=== PATIENT | male | born 1945 | race Caucasian/White ===

== ENCOUNTER 2020-09-17 10:31 | Emergency (ER) | payer OTHER, MEDICARE ==
[~2020-09-17] VITALS: Ht 167.6 cm; Wt 86.6 kg
[~2020-09-17 10:31] MED LIST: Prednisone20 MG PO
[2020-09-17 10:56] LABS: BASOPHILS ABSOLUTE AUTO 0.05 K/mm3 (0.00-0.23); BASOPHILS PERCENT AUTO 0 % (0-2); EOSINOPHILS ABSOLUTE AUTO 0.09 K/mm3 (0.00-0.68); EOSINOPHILS PERCENT AUTO 1 % (0-6); Hematocrit 37.8 % (37.0-53.0); Hemoglobin 12.9 g/dL (13.5-17.5); IMMATURE GRAN ABSOLUTE AUTO 0.04 K/mm3 (0.00-0.10); IMMATURE GRAN PERCENT AUTO 0 % (0-1); LYMPHOCYTES PERCENT AUTO 9 % (21-46); MONOCYTES ABSOLUTE AUTO 1.13 K/mm3 (0.16-1.47); MONOCYTES PERCENT AUTO 10 % (4-13); Mean Corpuscular HGB 30.1 pg (26.0-34.0); Mean Corpuscular HGB Conc 34.1 g/dL (31.5-36.5); Mean Corpuscular Volume 88 fL (80-100); Mean Platelet Volume 9.4 fL (9.1-12.4); NEUTROPHILS ABSOLUTE AUTO 9.35 K/mm3 (1.96-9.15); NEUTROPHILS PERCENT AUTO 80 % (41-73); Platelet Count 168 K/mm3 (150-400); RDW Coefficient Variation 12.7 % (11.7-14.2); RDW Standard Deviation 41.3 fL (35.1-46.3); Red Blood Cell Count 4.28 M/mm3 (4.30-5.90); White Blood Cell Count 11.66 K/mm3 (4.00-11.30)
[2020-09-17 11:23] LABS: Alanine Aminotransfer (ALT/SGP 26 U/L (12-78); Albumin, Blood 3.7 g/dL (3.4-5.0); Albumin/Globulin Ratio 1.1 (0.8-1.8); Alk Phos 74 U/L (50-136); Anion Gap 4 mmol/L (6-16); Aspartate Aminotrans (AST/SGOT 17 U/L (12-37); Bilirubin, Total 0.6 mg/dL (0.1-1.0); Blood Urea Nitrogen 18 mg/dL (8-24); Bun/Creatinine Ratio 15.5 (12.0-20.0); CO2, Blood 25 mmol/L (21-32); Calcium, Blood 8.7 mg/dL (8.5-10.1); Chloride, Blood 111 mmol/L (98-108); Creatinine, Blood 1.16 mg/dL (0.60-1.20); Globulin, Blood 3.4 g/dL (2.2-4.0); Glomerular Filtration Rate >60 (60-); Glucose, Blood 121 mg/dL (70-99); Potassium, Blood 4.3 mmol/L (3.5-5.5); Sodium, Blood 140 mmol/L (136-145); Total Protein, Blood 7.1 g/dL (6.4-8.2); Troponin I <0.015 ng/mL (0.000-0.040)
[2020-09-17] MEDS ORDERED: ACETADOTE200 MG/1 M INH (14:23)
[2020-09-17] MEDS ORDERED: ALBU90OI INH ×2 (14:24→14:28)
[2020-09-17] MEDS ORDERED: ALBU2.5V5 NEB (14:24)
[2020-09-17] MEDS ORDERED: NYST237S PO (14:30)
[2020-09-17] MEDS ORDERED: Aspir 8181 MG PO (14:30)
[2020-09-17] MEDS ORDERED: BENMENLOZ PO (14:31)
[2020-09-17] MEDS ORDERED: CARBOXYMETHYLCE15 ML BOTHEYES (14:32)
[2020-09-17] MEDS ORDERED: ERGO400 PO (14:32)
[2020-09-17] MEDS ORDERED: CLOP75 PO (14:33)
[2020-09-17] MEDS ORDERED: B-121000 MC4 PO (14:33)
[2020-09-17] MEDS ORDERED: FINA5 PO (14:34)
[2020-09-17] MEDS ORDERED: FAMO20 PO (14:34)
[2020-09-17] MEDS ORDERED: FURO40 PO (14:35)
[2020-09-17] MEDS ORDERED: GUAI600T33 PO (14:35)
[2020-09-17] MEDS ORDERED: FISH OIL 1,2001 EAC7 PO (14:35)
[2020-09-17] MEDS ORDERED: LOSARTAN POTAS100 M1 PO (14:36)
[2020-09-17] MEDS ORDERED: LEVSOD100 PO (14:36)
[2020-09-17] MEDS ORDERED: LORA10ER PO (14:36)
[2020-09-17] MEDS ORDERED: METO25 PO (14:37)
[2020-09-17] MEDS ORDERED: Hair, Skin & N1 EACH PO (14:37)
[2020-09-17] MEDS ORDERED: TAMS.4ER PO (14:38)
[2020-09-17] MEDS ORDERED: POTA10T PO (14:38)
[2020-09-17] MEDS ORDERED: STIOLTO RESPIMAT4 G1 INH (14:38)
[2020-09-17] MEDS ORDERED: ZOCOR20 MG PO (14:38)
[2020-09-17] MEDS ORDERED: DOXY100 PO (14:43)
== END 2020-09-17 14:55 | disposition home or self-care (01) ==
LOC: ER 10:31
PROVIDERS: Emergency Medicine
DX: J18.9 Pneumonia, unspecified organism (principal); Z79.52 Long term (current) use of systemic steroids; Z79.82 Long term (current) use of aspirin; Z79.899 Other long term (current) drug therapy
CPT/HCPCS: 71045; 80053; 83880; 84484; 85025; 93005; 93010; 96374; 99285-25; J0696

== ENCOUNTER 2020-10-15 20:20 | Emergency (ER) | payer OTHER, MEDICARE ==
[~2020-10-15] VITALS: Ht 177.8 cm; Wt 92.5 kg
[~2020-10-15 20:20] MED LIST changes: +ACETADOTE200 MG/1 M INH; +ALBU2.5V5 NEB; +ALBU90OI INH; +AMOCLA875 PO; +Aspir 8181 MG PO; +B-121000 MC4 PO; +BENMENLOZ PO; +CARBOXYMETHYLCE15 ML BOTHEYES; +CLOP75 PO; +DOXY100 PO; +ERGO400 PO; +FAMO20 PO; +FINA5 PO; +FISH OIL 1,2001 EAC7 PO; +FURO40 PO; +GUAI600T33 PO; +Hair, Skin & N1 EACH PO; +LEVSOD100 PO; +LORA10ER PO; +LOSARTAN POTAS100 M1 PO; +METO25 PO; +NYST237S PO; +POTA10T PO; +STIOLTO RESPIMAT4 G1 INH; +TAMS.4ER PO; +ZOCOR20 MG PO
[2020-10-15 20:47] LABS: BASOPHILS ABSOLUTE AUTO 0.05 K/mm3 (0.00-0.23); BASOPHILS PERCENT AUTO 1 % (0-2); EOSINOPHILS PERCENT AUTO 8 % (0-6); Hematocrit 39.2 % (37.0-53.0); Hemoglobin 13.3 g/dL (13.5-17.5); IMMATURE GRAN ABSOLUTE AUTO 0.02 K/mm3 (0.00-0.10); IMMATURE GRAN PERCENT AUTO 0 % (0-1); LYMPHOCYTES ABSOLUTE AUTO 1.67 K/mm3 (0.84-5.20); LYMPHOCYTES PERCENT AUTO 26 % (21-46); MONOCYTES ABSOLUTE AUTO 0.83 K/mm3 (0.16-1.47); MONOCYTES PERCENT AUTO 13 % (4-13); Mean Corpuscular HGB 30.1 pg (26.0-34.0); Mean Corpuscular HGB Conc 33.9 g/dL (31.5-36.5); Mean Corpuscular Volume 89 fL (80-100); Mean Platelet Volume 9.8 fL (9.1-12.4); NEUTROPHILS ABSOLUTE AUTO 3.45 K/mm3 (1.96-9.15); NEUTROPHILS PERCENT AUTO 53 % (41-73); Platelet Count 187 K/mm3 (150-400); RDW Coefficient Variation 13.3 % (11.7-14.2); RDW Standard Deviation 43.7 fL (35.1-46.3); Red Blood Cell Count 4.42 M/mm3 (4.30-5.90); White Blood Cell Count 6.52 K/mm3 (4.00-11.30)
[2020-10-15 21:02] LABS: Calcium, Blood 9.1 mg/dL (8.5-10.1); Creatinine, Blood 1.45 mg/dL (0.60-1.20); Potassium, Blood 4.4 mmol/L (3.5-5.5)
[2020-12-13] MEDS ORDERED: ALBU2.5V5 INH (10:53)
[2020-12-13] MEDS ORDERED: VITAMIN D310 MC4 PO (10:53)
[2020-12-13] MEDS ORDERED: Aspir 8181 MG PO (10:53)
[2020-12-13] MEDS ORDERED: ALBU90OI INH (10:53)
[2020-12-13] MEDS ORDERED: FLUT.05NI (10:54)
[2020-12-13] MEDS ORDERED: CLOP75 PO (10:54)
[2020-12-13] MEDS ORDERED: Vitamin B-121000 MCG PO (10:54)
[2020-12-13] MEDS ORDERED: FINA5 PO (10:54)
[2020-12-13] MEDS ORDERED: FAMO20 PO (10:54)
[2020-12-13] MEDS ORDERED: METOPROLOL SUCC25 MG PO (10:55)
[2020-12-13] MEDS ORDERED: LOSARTAN POTAS100 M1 PO (10:55)
[2020-12-13] MEDS ORDERED: ALLERCLEAR10 MG PO (10:55)
[2020-12-13] MEDS ORDERED: FURO40 PO (10:55)
[2020-12-13] MEDS ORDERED: LEVSOD100 PO (10:55)
[2020-12-13] MEDS ORDERED: ASMANEX HFA13 G4 INH (10:56)
[2020-12-13] MEDS ORDERED: OMEGA-3 + VITA200 ML PO (10:56)
[2020-12-13] MEDS ORDERED: STRIVERDI RESPIM4 G1 IH (10:56)
[2020-12-13] MEDS ORDERED: K-Dur10 MEQ PO (10:57)
[2020-12-13] MEDS ORDERED: TAMS.4ER PO (10:57)
[2020-12-13] MEDS ORDERED: ZOCOR20 MG PO (10:57)
[2020-12-13] MEDS ORDERED: Flovent Disku100 MCG INH (10:58)
== END 2020-10-15 21:55 | disposition home or self-care (01) ==
LOC: ER 20:20
PROVIDERS: Emergency Medicine
DX: J40 Bronchitis, not specified as acute or chronic (principal); N28.9 Disorder of kidney and ureter, unspecified; J44.9 Chronic obstructive pulmonary disease, unspecified; I10 Essential (primary) hypertension; E78.00 Pure hypercholesterolemia, unspecified; Z88.8 Allergy status to other drugs, medicaments and biological substances; Z91.041 Radiographic dye allergy status; Z79.82 Long term (current) use of aspirin; Z79.899 Other long term (current) drug therapy; Z79.02 Long term (current) use of antithrombotics/antiplatelets
CPT/HCPCS: 36415; 71046; 80048; 85025; 93005; 93010; 96374; 99284-25; J2930

== ENCOUNTER 2020-12-22 11:46 | Day surgery (SDC) | payer OTHER ==
[~2020-12-22] VITALS: Ht 177.8 cm; Wt 94.8 kg
[~2020-12-22 11:46] MED LIST changes: +ALBU2.5V5 INH; +ALLERCLEAR10 MG PO; +ASMANEX HFA13 G4 INH; +FLUT.05NI; +Flovent Disku100 MCG INH; +K-Dur10 MEQ PO; +METOPROLOL SUCC25 MG PO; +OMEGA-3 + VITA200 ML PO; +STRIVERDI RESPIM4 G1 IH; +VITAMIN D310 MC4 PO; +Vitamin B-121000 MCG PO
== END 2020-12-22 14:21 | disposition home or self-care (01) ==
LOC: ORSCSDS 11:46
PROVIDERS: Ophthalmology
PROC: 080NXZZ Alteration of Right Upper Eyelid, External Approach (ICD-10-PCS; principal; 2020-12-22 13:00)
PROC: 080PXZZ Alteration of Left Upper Eyelid, External Approach (ICD-10-PCS; principal; 2020-12-22 13:00)
DX: H02.831 Dermatochalasis of right upper eyelid (principal); H02.834 Dermatochalasis of left upper eyelid; I48.0 Paroxysmal atrial fibrillation; Z79.01 Long term (current) use of anticoagulants; J44.9 Chronic obstructive pulmonary disease, unspecified; G47.33 Obstructive sleep apnea (adult) (pediatric); Z79.899 Other long term (current) drug therapy; Z79.82 Long term (current) use of aspirin
CPT/HCPCS: A9270; J0171; J2250; J2704; J3010

== ENCOUNTER 2021-07-01 05:40 | Day surgery (SDC) | payer OTHER, MEDICARE ==
[~2021-07-01] VITALS: Ht 177.8 cm; Wt 93.0 kg
[~2021-07-01 05:40] MED LIST changes: +B-121000 MC7 PO; +FISH OIL-OMEGA 3 PO; +PANT40 PO; +PRED20 PO
--- NOTE | 2021-07-01 10:51 | NUR ---
TR BAND REMOVED, DRESSING PLACED TO R ACCESS SITE, R SPLINT PLACED, IV DC'D INTACT, PT DRESSED, DR NEGRON BY AND DISCUSSED PLAN OF CARE, PT WAITING FOR RIDE AT THIS TIME
--- NOTE | 2021-07-01 11:16 | NUR ---
PT DC'D BY MIKE, FAMILY DRIVING PT HOME
== END 2021-07-01 10:00 | disposition home or self-care (01) ==
LOC: MHTC 05:40
DX: I25.118 Atherosclerotic heart disease of native coronary artery with other forms of angina pectoris (principal); I11.0 Hypertensive heart disease with heart failure; I50.42 Chronic combined systolic (congestive) and diastolic (congestive) heart failure; J44.9 Chronic obstructive pulmonary disease, unspecified; I35.0 Nonrheumatic aortic (valve) stenosis; Z95.5 Presence of coronary angioplasty implant and graft; Z87.891 Personal history of nicotine dependence; Z79.02 Long term (current) use of antithrombotics/antiplatelets; Z88.8 Allergy status to other drugs, medicaments and biological substances
CPT/HCPCS: 76937; 93454; 99152; 99153; C1769; C1887; C1894; J1200; J1644; J1720; J2250; J3010; J7030; J7050; Q9967

== ENCOUNTER 2021-07-21 12:11 | Emergency (ER) | payer OTHER ==
[~2021-07-21] VITALS: Ht 177.8 cm; Wt 95.2 kg
[2021-07-21 12:38] LABS: BASOPHILS ABSOLUTE AUTO 0.04 K/mm3 (0.00-0.23); BASOPHILS PERCENT AUTO 1 % (0-2); EOSINOPHILS ABSOLUTE AUTO 0.17 K/mm3 (0.00-0.68); EOSINOPHILS PERCENT AUTO 2 % (0-6); Hematocrit 40.1 % (37.0-53.0); Hemoglobin 13.6 g/dL (13.5-17.5); IMMATURE GRAN ABSOLUTE AUTO 0.03 K/mm3 (0.00-0.10); IMMATURE GRAN PERCENT AUTO 0 % (0-1); LYMPHOCYTES ABSOLUTE AUTO 1.68 K/mm3 (0.84-5.20); LYMPHOCYTES PERCENT AUTO 24 % (21-46); MONOCYTES ABSOLUTE AUTO 0.74 K/mm3 (0.16-1.47); MONOCYTES PERCENT AUTO 11 % (4-13); Mean Corpuscular HGB 30.2 pg (26.0-34.0); Mean Corpuscular HGB Conc 33.9 g/dL (31.5-36.5); Mean Corpuscular Volume 89 fL (80-100); Mean Platelet Volume 9.5 fL (9.1-12.4); NEUTROPHILS PERCENT AUTO 62 % (41-73); Platelet Count 180 K/mm3 (150-400); RDW Coefficient Variation 12.9 % (11.7-14.2); RDW Standard Deviation 42.1 fL (35.1-46.3); Red Blood Cell Count 4.51 M/mm3 (4.30-5.90); White Blood Cell Count 7.06 K/mm3 (4.00-11.30)
[2021-07-21 12:57] LABS: Albumin, Blood 4.1 g/dL (3.4-5.0); Albumin/Globulin Ratio 1.2 (0.8-1.8); Bilirubin, Total 0.7 mg/dL (0.1-1.0); Bun/Creatinine Ratio 18.6 (12.0-20.0); Calcium, Blood 9.1 mg/dL (8.5-10.1); Creatinine, Blood 1.29 mg/dL (0.60-1.20); Globulin, Blood 3.5 g/dL (2.2-4.0); Potassium, Blood 3.7 mmol/L (3.5-5.5); Total Protein, Blood 7.6 g/dL (6.4-8.2)
== END 2021-07-21 15:55 | disposition home or self-care (01) ==
LOC: ER 12:11
PROVIDERS: Emergency Medicine
DX: R07.89 Other chest pain (principal); Z88.8 Allergy status to other drugs, medicaments and biological substances; Z79.899 Other long term (current) drug therapy; Z79.82 Long term (current) use of aspirin; J44.9 Chronic obstructive pulmonary disease, unspecified; I10 Essential (primary) hypertension; E78.00 Pure hypercholesterolemia, unspecified
CPT/HCPCS: 71045; 80053; 83880; 84484; 85025; 93005; 93010; 99285-25

== ENCOUNTER 2021-10-29 18:11 | Emergency (ER) | payer OTHER ==
[~2021-10-29] VITALS: Ht 177.8 cm; Wt 96.2 kg
[2021-10-29 19:52] LABS: BASOPHILS ABSOLUTE AUTO 0.04 K/mm3 (0.00-0.23); BASOPHILS PERCENT AUTO 1 % (0-2); EOSINOPHILS ABSOLUTE AUTO 0.15 K/mm3 (0.00-0.68); EOSINOPHILS PERCENT AUTO 2 % (0-6); Hemoglobin 13.4 g/dL (13.5-17.5); IMMATURE GRAN ABSOLUTE AUTO 0.02 K/mm3 (0.00-0.10); IMMATURE GRAN PERCENT AUTO 0 % (0-1); LYMPHOCYTES ABSOLUTE AUTO 1.37 K/mm3 (0.84-5.20); LYMPHOCYTES PERCENT AUTO 18 % (21-46); MONOCYTES ABSOLUTE AUTO 0.54 K/mm3 (0.16-1.47); MONOCYTES PERCENT AUTO 7 % (4-13); Mean Corpuscular HGB 30.2 pg (26.0-34.0); Mean Corpuscular HGB Conc 33.5 g/dL (31.5-36.5); Mean Corpuscular Volume 90 fL (80-100); Mean Platelet Volume 9.9 fL (9.1-12.4); NEUTROPHILS ABSOLUTE AUTO 5.49 K/mm3 (1.96-9.15); NEUTROPHILS PERCENT AUTO 72 % (41-73); Platelet Count 186 K/mm3 (150-400); RDW Coefficient Variation 13.6 % (11.7-14.2); RDW Standard Deviation 45.3 fL (35.1-46.3); Red Blood Cell Count 4.43 M/mm3 (4.30-5.90); White Blood Cell Count 7.61 K/mm3 (4.00-11.30)
[2021-10-29 20:11] LABS: Albumin/Globulin Ratio 1.2 (0.8-1.8); Bilirubin, Total 0.4 mg/dL (0.1-1.0); Bun/Creatinine Ratio 13.4 (12.0-20.0); Calcium, Blood 8.7 mg/dL (8.5-10.1); Creatinine, Blood 1.34 mg/dL (0.60-1.20); Globulin, Blood 3.4 g/dL (2.2-4.0); Potassium, Blood 4.1 mmol/L (3.5-5.5); Total Protein, Blood 7.4 g/dL (6.4-8.2)
== END 2021-10-29 22:41 | disposition home or self-care (01) ==
LOC: ER 18:11
PROVIDERS: Physician Assistant
DX: K92.0 Hematemesis (principal); J44.9 Chronic obstructive pulmonary disease, unspecified; Z85.118 Personal history of other malignant neoplasm of bronchus and lung; Z79.899 Other long term (current) drug therapy; Z79.82 Long term (current) use of aspirin; Z87.891 Personal history of nicotine dependence
CPT/HCPCS: 36415; 71046; 80053; 83880; 84484; 85025; 93005; 93010; 99283-25

== ENCOUNTER 2022-02-24 05:25 | Inpatient (IN) | payer OTHER ==
[~2022-02-24] VITALS: Ht 175.3 cm; Wt 100.5 kg
[~2022-02-24 05:25] MED LIST changes: +FURO20 PO
[2022-02-24 05:44] LABS: BASOPHILS ABSOLUTE AUTO 0.03 K/mm3 (0.00-0.23); BASOPHILS PERCENT AUTO 0 % (0-2); EOSINOPHILS ABSOLUTE AUTO 0.08 K/mm3 (0.00-0.68); EOSINOPHILS PERCENT AUTO 1 % (0-6); Hematocrit 42.5 % (37.0-53.0); IMMATURE GRAN ABSOLUTE AUTO 0.04 K/mm3 (0.00-0.10); IMMATURE GRAN PERCENT AUTO 0 % (0-1); LYMPHOCYTES ABSOLUTE AUTO 2.57 K/mm3 (0.84-5.20); LYMPHOCYTES PERCENT AUTO 22 % (21-46); MONOCYTES ABSOLUTE AUTO 0.64 K/mm3 (0.16-1.47); MONOCYTES PERCENT AUTO 6 % (4-13); Mean Corpuscular HGB 30.4 pg (26.0-34.0); Mean Corpuscular HGB Conc 32.9 g/dL (31.5-36.5); Mean Corpuscular Volume 92 fL (80-100); Mean Platelet Volume 9.6 fL (9.1-12.4); NEUTROPHILS ABSOLUTE AUTO 8.27 K/mm3 (1.96-9.15); NEUTROPHILS PERCENT AUTO 71 % (41-73); Platelet Count 180 K/mm3 (150-400); RDW Coefficient Variation 13.7 % (11.7-14.2); RDW Standard Deviation 46.5 fL (35.1-46.3); Red Blood Cell Count 4.61 M/mm3 (4.30-5.90); White Blood Cell Count 11.63 K/mm3 (4.00-11.30)
[2022-02-24 06:06] LABS: Albumin, Blood 3.8 g/dL (3.4-5.0); Albumin/Globulin Ratio 1.1 (0.8-1.8); Bilirubin, Total 0.4 mg/dL (0.1-1.0); Calcium, Blood 8.4 mg/dL (8.5-10.1); Creatinine, Blood 1.82 mg/dL (0.60-1.20); Globulin, Blood 3.5 g/dL (2.2-4.0); Magnesium, Blood 2.5 mg/dL (1.6-2.4); Potassium, Blood 4.4 mmol/L (3.5-5.5); Total Protein, Blood 7.3 g/dL (6.4-8.2)
[2022-02-24 06:31] LABS: PCO2 Arterial 34.3 mmHg (35-45); pH Blood Arterial 7.42 (7.35-7.45)
[2022-02-24 07:08] LABS: Influenza A, PCR NEGATIVE (NEGATIVE); Influenza B, PCR NEGATIVE (NEGATIVE); Resp Syncytial Virus, PCR NEGATIVE (NEGATIVE); SARS-Cov-2 (COVID-19) PCR, MMC NEGATIVE (NEGATIVE)
[2022-02-24] MEDS ORDERED: CYCL10 PO (10:23)
--- NOTE | 2022-02-24 18:13 | NUR ---
SHIFT SUMMARY; ADMIT FROM ED DURING SHIFT. A/A/OX4. MOVES SELF FROM GURNEY TO BED WITHOUT DIFFICULTY. 02 10L VIA HIGH FLOW CANNULA. SPEAKING FULL SENTENCES, NO RESPIRATORY DISTRESS. USES URINAL DURING SHIFT WITHOUT DIFFICULTY AND AMBULATES TO RESTROOM WITH STANDBY ASSIT. 02 DECREASED TO 5L BY RT. PLEASANT AND COOPERATIVE WITH CARE. VSS, WILL CONTINUE TO MONITOR AND TREAT UNTIL CHANGE OF SHIFT.
[2022-02-25 04:34] LABS: BASOPHILS ABSOLUTE AUTO 0.04 K/mm3 (0.00-0.23); BASOPHILS PERCENT AUTO 0 % (0-2); EOSINOPHILS PERCENT AUTO 0 % (0-6); Hematocrit 37.1 % (37.0-53.0); Hemoglobin 12.7 g/dL (13.5-17.5); IMMATURE GRAN ABSOLUTE AUTO 0.18 K/mm3 (0.00-0.10); IMMATURE GRAN PERCENT AUTO 1 % (0-1); LYMPHOCYTES ABSOLUTE AUTO 1.47 K/mm3 (0.84-5.20); LYMPHOCYTES PERCENT AUTO 7 % (21-46); MONOCYTES ABSOLUTE AUTO 1.85 K/mm3 (0.16-1.47); MONOCYTES PERCENT AUTO 9 % (4-13); Mean Corpuscular HGB 30.9 pg (26.0-34.0); Mean Corpuscular HGB Conc 34.2 g/dL (31.5-36.5); Mean Corpuscular Volume 90 fL (80-100); Mean Platelet Volume 10.4 fL (9.1-12.4); NEUTROPHILS ABSOLUTE AUTO 17.22 K/mm3 (1.96-9.15); NEUTROPHILS PERCENT AUTO 83 % (41-73); Platelet Count 175 K/mm3 (150-400); RDW Coefficient Variation 13.6 % (11.7-14.2); RDW Standard Deviation 45.5 fL (35.1-46.3); Red Blood Cell Count 4.11 M/mm3 (4.30-5.90); White Blood Cell Count 20.76 K/mm3 (4.00-11.30)
[2022-02-25 04:39] LABS: PCO2 Arterial 37.1 mmHg (35-45); PO2 Arterial 106 mmHg (80-100); pH Blood Arterial 7.41 (7.35-7.45)
[2022-02-25 05:00] LABS: Albumin, Blood 3.4 g/dL (3.4-5.0); Albumin/Globulin Ratio 0.9 (0.8-1.8); Bilirubin, Total 0.6 mg/dL (0.1-1.0); Bun/Creatinine Ratio 24.1 (12.0-20.0); Calcium, Blood 8.6 mg/dL (8.5-10.1); Creatinine, Blood 1.33 mg/dL (0.60-1.20); Globulin, Blood 3.7 g/dL (2.2-4.0); Potassium, Blood 4.5 mmol/L (3.5-5.5); Total Protein, Blood 7.1 g/dL (6.4-8.2)
--- NOTE | 2022-02-25 06:33 | NUR ---
SHIFT SUMMARY PT IS ALERT AND ORIENTED X4. HE DENIES CHEST PAIN/PRESSURE. BP HAS BEEN SOFT AT TIMES. HR IN THE 80'S. THIS AM STARTING AT APPROX 05:30 HE HAD HAD SR ABARRANCIES. CHARGE NURSE TALKED TO HOSPITALIST THIS AM TO GET A MAG DRAW WITH LABS. HE DENIES CHEST PAIN/PRESSURE OR PALPATATIONS. HE REPORTS "FEELING BETTER." HE IS CURRENTLY ON 2-3 L NC WITH SATS ABOVE 90%. HE HAS BEEN UP TO THE BATHROOM AND HAS BEEN USING URINAL AT TIMES. CALL LIGHT IS WITHIN REACH.
--- NOTE | 2022-02-25 18:03 | NUR ---
NO ACUTE EVENTS T/O SHIFT. PT HAS HAD SMALL RUNS OF NONSUSTAINED VTACH, WHICH DR ZAPATA MENTIONS IN HIS NOTE, MAY BE CHRONIC FOR HIM. PT IS ASYMPTOMATIC WITH THIS RHYTHM. 02 DEMANDS HAVE DECREASED FROM 5L TO 2L. PT IS ABLE TO AMBULATE IN ROOM INDEPENDENTLY. PT USES CALL LIGHT FOR NEEDS, CALL LIGHT IN REACH, WILL CONTINUE TO MONITOR AND GIVE REPORT TO NOC ZACKARY RN.
[2022-02-26 03:41] LABS: Base Excess Venous 2.5 mmol/L; Bicarbonate Venous 25.4 mmol/L (24.0-30.0); PCO2 Venous 45.2 mmHg (38-42); pH Blood Venous 7.39 (7.34-7.37)
[2022-02-26 04:16] LABS: BASOPHILS ABSOLUTE AUTO 0.04 K/mm3 (0.00-0.23); BASOPHILS PERCENT AUTO 0 % (0-2); EOSINOPHILS ABSOLUTE AUTO 0.08 K/mm3 (0.00-0.68); EOSINOPHILS PERCENT AUTO 1 % (0-6); Hematocrit 36.7 % (37.0-53.0); IMMATURE GRAN ABSOLUTE AUTO 0.07 K/mm3 (0.00-0.10); IMMATURE GRAN PERCENT AUTO 1 % (0-1); LYMPHOCYTES ABSOLUTE AUTO 1.76 K/mm3 (0.84-5.20); LYMPHOCYTES PERCENT AUTO 13 % (21-46); MONOCYTES ABSOLUTE AUTO 1.13 K/mm3 (0.16-1.47); MONOCYTES PERCENT AUTO 8 % (4-13); Mean Corpuscular HGB 30.2 pg (26.0-34.0); Mean Corpuscular HGB Conc 32.7 g/dL (31.5-36.5); Mean Corpuscular Volume 92 fL (80-100); Mean Platelet Volume 10.4 fL (9.1-12.4); NEUTROPHILS ABSOLUTE AUTO 10.94 K/mm3 (1.96-9.15); NEUTROPHILS PERCENT AUTO 78 % (41-73); Platelet Count 170 K/mm3 (150-400); RDW Standard Deviation 47.6 fL (35.1-46.3); Red Blood Cell Count 3.97 M/mm3 (4.30-5.90); White Blood Cell Count 14.02 K/mm3 (4.00-11.30)
[2022-02-26 04:49] LABS: Calcium, Blood 8.3 mg/dL (8.5-10.1); Creatinine, Blood 1.1 mg/dL (0.60-1.20); Potassium, Blood 4.5 mmol/L (3.5-5.5)
--- NOTE | 2022-02-26 05:56 | NUR ---
SHIFT SUMMARY PT ALERT AND ORIENTED X4. THERE HAVE BEEN NO ACUTE CHANGES T/O THE NIGHT. PT DENIES CHEST PAIN OR PRESSURE. HE REPORTS FEELING SOB ON EXERTION. VITALS ARE STABLE AND IS FROM 1-2L NC WITH SATS ABOVE 90%. PT HAS BEEN ABLE TO AMBULATE TO THE BATHROOM AND ALSO USES URINAL. LAST NIGHT HE ATTEMPTED TO SWITCH FROM NC TO CPAP, SAT UP IN BED AND BECAME DYSPNIC WHICH MADE HIM ANXIOUS AND STATED THAT HE WOULD NOT BE SWITCHING TO MASK FOR THE NIGHT. CALL LIGHT IS WITHIN REACH.
--- NOTE | 2022-02-26 18:18 | NUR ---
SHIFT SUMMARY PT WITH INTERMITTENT RUNS OF TRIGEMINY PVCS ON TELE. HAS BEEN SINUS IN THE 70S AND 80S THROUGHOUT THE DAY. PT HAD SOME ANXIETY AT THE START OF THE SHIFT BUT THIS HAS SINCE IMPROVED AND PT HAS BEEN RESTING. NO COMPLAINTS OF CHEST PAIN. SATTING >92% ON 2L THROUGHOUT THE SHIFT. USING URINAL INDEPENDENTLY. ALERT AND ORIENTED. PLEASANT. NO ACUTE DISTRESS THIS SHIFT.
--- NOTE | 2022-02-27 06:54 | NUR ---
PT AOX4, DENIES CP T/O SHIFT. OCCASIONAL RUNS OF TRIGEMINY. TACHYPNEIC AT REST, DYPNEIC W/EXERTION. LS DIM WITH OCCASIONAL EXPIRATORY WHEEZING WITH EXERTION. PT HAS THICK BROWN MUCUS WITH PRODUCTIVE COUGH. LACEY RT CALLED TO BEDSIDE DURING NIGHT FOR BREATHING TX D/T SOB W/EXERTION. PT STATED SOME IMPROVEMENT.
[2022-02-27 09:17] LABS: Hematocrit 38.4 % (37.0-53.0); Hemoglobin 12.6 g/dL (13.5-17.5); Mean Corpuscular HGB 30.5 pg (26.0-34.0); Mean Corpuscular HGB Conc 32.8 g/dL (31.5-36.5); Mean Corpuscular Volume 93 fL (80-100); Mean Platelet Volume 10.2 fL (9.1-12.4); Platelet Count 191 K/mm3 (150-400); RDW Coefficient Variation 13.6 % (11.7-14.2); RDW Standard Deviation 46.6 fL (35.1-46.3); Red Blood Cell Count 4.13 M/mm3 (4.30-5.90); White Blood Cell Count 11.38 K/mm3 (4.00-11.30)
[2022-02-27 09:32] LABS: Albumin, Blood 3.4 g/dL (3.4-5.0); Anion Gap 4 mmol/L (6-16); Blood Urea Nitrogen 15 mg/dL (8-24); CO2, Blood 29 mmol/L (21-32); Calcium, Blood 8.5 mg/dL (8.5-10.1); Chloride, Blood 108 mmol/L (98-108); Glomerular Filtration Rate 78 (60-); Glucose, Blood 131 mg/dL (70-99); Magnesium, Blood 2.6 mg/dL (1.6-2.4); Phosphorus, Blood 1.9 mg/dL (2.5-4.9); Potassium, Blood 4.1 mmol/L (3.5-5.5); Sodium, Blood 141 mmol/L (136-145)
--- NOTE | 2022-02-27 09:55 | NUR ---
ASSUMPTION OF CARE: PATIENT HAS BEEN ON 2L THROUGH THE NIGHT AND WAS CURRENLTY RECIEVING A BREATHING TREATMENT ON ASSUMPTION OF CARE AROUND 0715. PATIENT DENIES CHEST PAIN, PRESSURE, OR SOB AT REST. HAS BEEN PRODUCING LARGE AMOUNTS OF BROWN SPUTUM, WHICH HAS NOW BEEN SENT TO LAB FOR Cx. JUAN LUISVAHID TAMI BEEN USING THE URINAL AT THE BEDSIDE. PATIENT IS A/0 X 4, PLEASANT AND COOPERATIVE WITH CARE. IV'S FLUSHED, TELEMETRY IN PLACE. NO INFUSIONS RUNNING CURRENLTY. PATIENT HAS NO QUESTIONS OR CONCERNS FOR THIS DOCK MANAGER AT THIS TIME WILL CONTINUE TO MONITOR UNTIL SHIFT CHANGE.
--- NOTE | 2022-02-27 16:35 | NUR ---
END OF SHIFT / ASSUMPTION OF CARE: PATIENT HAS ASSESSMENT CHANGE FROM ASSUMPTION OF CARE. ENDORESES SOME VERY MILD DECREASE TO DYSPNEA ON EXERTION. IS NOW INFUSING POTASSIUM PHOSPHATE STILL NEEDS ~2.5 HOURS TO INFUSE COMPLETELY. PATIENT TOLERATING WELL NO SIGNS OF INFILTRATION. PATIENT HAS BEEN PLEASANT STILL DENIES CHEST PAIN/PRESSURE OR SOB AT REST. PATIENT IS AFEBRILE. NO CONCERNS FROM THIS BUSINESS INTELLIGENCE DEVELOPER AT THIS TIME.
--- NOTE | 2022-02-27 22:15 | NUR ---
Pt ambulating Pt up and ambulating in crocker per request, steady on his feet, some dyspnea but states he is feeling much better and would like to walk. Holds onto side rail in crocker per this RN request.
[2022-02-28 05:12] LABS: Albumin, Blood 3.3 g/dL (3.4-5.0); Anion Gap 9 mmol/L (6-16); Blood Urea Nitrogen 18 mg/dL (8-24); Bun/Creatinine Ratio 19.4 (12.0-20.0); CO2, Blood 24 mmol/L (21-32); Chloride, Blood 108 mmol/L (98-108); Creatinine, Blood 0.93 mg/dL (0.60-1.20); Glomerular Filtration Rate 85 (60-); Glucose, Blood 142 mg/dL (70-99); Phosphorus, Blood 3.3 mg/dL (2.5-4.9); Potassium, Blood 4.8 mmol/L (3.5-5.5); Sodium, Blood 141 mmol/L (136-145)
--- NOTE | 2022-02-28 06:45 | NUR ---
SHIFT SUMMARY PT SEEMS LETHARGIC T/O SHIFT, RESPONDS WITH YES AND SOME GARBLED RESPONSES, SEEMED TO IMPROVE TOWARDS EARLY AM. PUPILS EQUAL AND REACTIVE, R SIDE GAZE, PT APPEARS TO NEGLECT L SIDE, L SIDE FACIAL PARALYSIS VISIBLE WITH SOME IMPROVEMENT FROM START OF SHIFT (CAN LIFT BROWS FOR THIS RN, AT START COULD NOT LIFT L BROW), REFLEXES PRESENT IN BLE. DIFFICULT TO ASSESS SENSATION D/T PT NEGLECT TO L SIDE AND UNABLE TO VERBALIZE A CONFIRMATION TO THAT SIDE. VERBALIZES WHEN THIS RN TOUCHES R ARM OR LEG. PT HAS COPIOUS SPUTUM AND DROOL, APPEARS TO HAVE DIFFICULTY SWALLOWING SECRETIONS. FREQUENT SUCTIONING AND ORAL CARE PERFORMED. PT IS TACHYPNEIC AT TIMES WITH SHALLOW BREATHING. SATS 93-95% ON RA THIS AM WHEN PULLED OFF CANNULA AND REQUESTED TO TRY IT OFF. PLACED BACK ON WHEN SOME APNEA IS NOTED WITH DESATS TO 90-92%. LS OTHERWISE CLEAR AND DIM. PT TURNED FREQUENTLY AND CHANGED D/T INCONTINENT OF URINE, NO STOOL NOTED THIS SHIFT. PT DENIES ABD TENDERNESS. (SOME DARK BROWN EXPECTORATE NOTED AND REPORTED TO DR MALHOTRA). (PHOTO IN CHART) PT'S SEIZURE ACTIVITY HAS APPEARED TO LESSEN IN FREQUENCY T/O SHIFT. PT BECOMES TREMULOUS AND APPEARS TO HAVE SOME SEIZURE ACTIVITY WITH TURNS IN BED FOR REPOSITIONING AND CLEANING.
--- NOTE | 2022-02-28 07:24 | NUR ---
SHIFT SUMMARY PT AOX4, BREATHING TACHYPNEIC, DYSPNEA WITH EXERTION, SATS 95-97% ON RA, DESATS IN EVENING WHEN LAYING DOWN FOR BED AND WHILE ASLEEP. PLACED ON HOME CPAP. RT CALLED TO ADD O2 TO HOME CPAP D/T DESAT TO 89-90% WHILE USING IT WHILE ASLEEP. OTHERWISE, PT STATES HE IS FEELING MUCH BETTER, TOLERATED WALKING IN BUNN AND RECOVERED FROM DYSPNEA WELL.
--- NOTE | 2022-02-28 09:21 | NUR ---
ASSUMPTION OF CARE THIS RN ASSUMED CARE OF PATIENT AT 0700. REPORT TAKEN FROM [facility]. NO ACUTE EVENTS REPORTED OVERNIGHT. VITALS STABLE. PATIENT ON ROOM AIR AND WALKING TO BATHROOM AT START OF SHIFT. NO SIGNS OF DISTRESS WITH WALKING; INDEPENDENT WITH ADLS/TRANSFERRING. PATIENT APPEARS TO BE RESTING IN BED WITH CPAP ON. BED IN LOWEST POSITION AND CALL LIGHT WITHIN REACH.
[2022-02-28] MEDS ORDERED: BUDESONIDE0.5 MG/2 M INH (11:43)
[2022-02-28] MEDS ORDERED: AZIT500 PO (11:45)
[2022-02-28] MEDS ORDERED: CEFD300 PO (11:46)
[2022-02-28] MEDS ORDERED: VISBIOME 112.51 EACH PO (11:46)
[2022-02-28] MEDS ORDERED: Prednisone10 MG PO (11:48)
--- NOTE | 2022-02-28 13:00 | NUR ---
DISCHARGE NOTE PATIENT WITH STABLE VITALS. ON RA WITH O2 SATS >92%. DENIES SOB. PATIENT INDEPENDENT WITH GETTING DRESSED AND PACKING THINGS FOR DISCHARGE. SIGNIFICANT OTHER AT BEDSIDE FOR DISCHARGE TEACHING. ZIO PATCH PLACED ON LEFT CHEST WALL. TELE AND IV DC'D, WNL. PATIENT GIVEN PRINTED INSTRUCTIONS OF FOLLOW UP APPOINTMENT AND DISCHARGE ORDERS. NEW MEDICATION LIST UPDATED AND PROVIDED FOR PATIENT. EDUCATION GIVEN ON NEW MEDICATIONS WITH SIGNIFICANT OTHER PRESENT FOR TEACHING. PATIENT IS HARD OF HEARING BUT VERBALIZED UNDERSTANDING INFORMATION. SIGNIFICANT OTHER AT BEDSIDE AND VERBALIZED BEING "IN CHARGE" OF MEDICATIONS. PATIENT INSTRUCTED ON ZIO PATCH BY [facility] TECH AND RE-STATED INFORMATION TO THIS RN. PATIENT UNDERSTANDS TO TALK TO PCP ABOUT CARDIOLOGY CONSULT AT FOLLOW UP APPOINTMENT. PATIENT TAKEN OUT OF HOSPITAL VIA WHEELCHAIR; NO SIGNS OF DISTRESS, RESPIRATORY OR OTHER. PATIENT AND SIGNIFICANT OTHER VERBALIZED UNDERSTANDING INSTRUCTIONS AND GIVEN PRINTED COPIES OF INFORMATION PROVIDED. CASE MANAGEMENT HELPED WITH FORM [facility] SO THAT THE [facility]IENT CAN GET OXYGEN FOR HIS CPAP AT HOME.
== END 2022-02-28 12:58 | disposition home or self-care (01) | DRG 871 ==
LOC: ER 05:25 → PCU 08:13
PROVIDERS: Emergency Medicine; Internal Medicine; Student in an Organized Health Care Education/Training Program; ADMIT Internal Medicine
PROC: 5A09357 Assistance with Respiratory Ventilation, Less than 24 Consecutive Hours, Continuous Positive Airway Pressure (ICD-10-PCS; principal; 2022-02-24)
PROC: 3E03329 Introduction of Other Anti-infective into Peripheral Vein, Percutaneous Approach (ICD-10-PCS; 2022-02-24)
DX: A41.9 Sepsis, unspecified organism (principal); J18.9 Pneumonia, unspecified organism; J96.21 Acute and chronic respiratory failure with hypoxia; J44.1 Chronic obstructive pulmonary disease with (acute) exacerbation; J44.0 Chronic obstructive pulmonary disease with (acute) lower respiratory infection; N17.9 Acute kidney failure, unspecified; R65.20 Severe sepsis without septic shock; Z85.118 Personal history of other malignant neoplasm of bronchus and lung; I49.9 Cardiac arrhythmia, unspecified; E83.39 Other disorders of phosphorus metabolism; Z20.822 Contact with and (suspected) exposure to COVID-19; I25.10 Atherosclerotic heart disease of native coronary artery without angina pectoris; N40.0 Benign prostatic hyperplasia without lower urinary tract symptoms; I06.2 Rheumatic aortic stenosis with insufficiency; G47.33 Obstructive sleep apnea (adult) (pediatric); K21.9 Gastro-esophageal reflux disease without esophagitis; E03.9 Hypothyroidism, unspecified; F43.10 Post-traumatic stress disorder, unspecified; Z92.3 Personal history of irradiation; Z92.21 Personal history of antineoplastic chemotherapy; Z95.5 Presence of coronary angioplasty implant and graft; I49.3 Ventricular premature depolarization; Z79.82 Long term (current) use of aspirin; Z79.02 Long term (current) use of antithrombotics/antiplatelets; Z79.899 Other long term (current) drug therapy; M19.90 Unspecified osteoarthritis, unspecified site; G89.29 Other chronic pain
CPT/HCPCS: 0241U; 36415; 36600; 71045; 80048; 80053; 80069; 82803; 83605; 83735; 83880; 84439; 84443; 84484; 85025; 85027; 87040; 87070; 87106; 87205; 93005; 93010; 93246; 94640; 94660; 94664; 94762; 96374; 96375; 99285-25; A9270; J0456; J0696; J1650; J1940; J2060; J2920; J2930; J7050; J7060

== ENCOUNTER → 2022-07-27 | Outpatient (CLI) | payer OTHER, BC ==
[~2022-07-27] MED LIST changes: +AZIT500 PO; +Acetaminophen325 M1 PO; +BUDESONIDE0.5 MG/2 M INH; +CEFD300 PO; +CYCL10 PO; +IPRAT-ALBUT 0.5-3 ML INH; +LOSA50 PO; +Prednisone10 MG PO; +VISBIOME 112.51 EACH PO; +Vitamin D1000 UNI1 PO
== END | disposition home or self-care (01) ==
LOC: LAB 14:12 → LAB SHORT 14:12
DX: R93.89 Abnormal findings on diagnostic imaging of other specified body structures (principal)
CPT/HCPCS: 87070; 87077; 87186; 87205

== ENCOUNTER 2022-11-06 18:09 | Inpatient (IN) | payer OTHER ==
[~2022-11-06] VITALS: Ht 177.8 cm; Wt 93.7 kg
[2022-11-06 19:19] LABS: BASOPHILS ABSOLUTE AUTO 0.06 K/mm3 (0.00-0.23); BASOPHILS PERCENT AUTO 1 % (0-2); EOSINOPHILS ABSOLUTE AUTO 0.22 K/mm3 (0.00-0.68); EOSINOPHILS PERCENT AUTO 4 % (0-6); Hematocrit 38.9 % (37.0-53.0); Hemoglobin 13.3 g/dL (13.5-17.5); IMMATURE GRAN ABSOLUTE AUTO 0.02 K/mm3 (0.00-0.10); IMMATURE GRAN PERCENT AUTO 0 % (0-1); LYMPHOCYTES ABSOLUTE AUTO 1.17 K/mm3 (0.84-5.20); LYMPHOCYTES PERCENT AUTO 19 % (21-46); MONOCYTES ABSOLUTE AUTO 0.65 K/mm3 (0.16-1.47); MONOCYTES PERCENT AUTO 11 % (4-13); Mean Corpuscular HGB 30.2 pg (26.0-34.0); Mean Corpuscular HGB Conc 34.2 g/dL (31.5-36.5); Mean Corpuscular Volume 88 fL (80-100); Mean Platelet Volume 9.6 fL (9.1-12.4); NEUTROPHILS ABSOLUTE AUTO 4.04 K/mm3 (1.96-9.15); NEUTROPHILS PERCENT AUTO 66 % (41-73); Platelet Count 206 K/mm3 (150-400); RDW Coefficient Variation 13.7 % (11.7-14.2); RDW Standard Deviation 44.3 fL (35.1-46.3); Red Blood Cell Count 4.41 M/mm3 (4.30-5.90); White Blood Cell Count 6.16 K/mm3 (4.00-11.30)
[2022-11-06 19:27] LABS: Albumin, Blood 3.7 g/dL (3.4-5.0); Albumin/Globulin Ratio 1.1 (0.8-1.8); Bilirubin, Total 0.5 mg/dL (0.1-1.0); Calcium, Blood 8.7 mg/dL (8.5-10.1); Creatinine, Blood 1.13 mg/dL (0.60-1.20); Globulin, Blood 3.3 g/dL (2.2-4.0); Potassium, Blood 4.5 mmol/L (3.5-5.5)
--- NOTE | 2022-11-07 00:42 | NUR ---
PT ARRIVED TO MEDICAL FLOOR @2250 FROM ER. REPORT FROM MALA DEP [place]. PT INDEPENDENT IN ROOM. PT NPO AFTER MIDNIGHT. PT A&O X4 AND VERY PLEASANT. SOB WITH EXERTION. PT STATES THIS IS BETTER THAN BEFORE BUT HAVING PAIN IN LOWER PART OF MIDDLE CHEST. WILL CONTINUE TO MONITOR.
[2022-11-07 04:08] VITALS: BP 116/67
--- NOTE | 2022-11-07 04:37 | NUR ---
SHIFT SUMMARY: PT A&O X4. PT PLEASANT AND COOPERATIVE WITH ALL CARE. PT ARRIVED TO MEDICAL FLOOR AT 2250. PT INDEPENDENTLY MOVED FROM WHEELCHAIR TO BED. PT STEADY ON FEET BUT HAVING SOME SHORTNESS OF BREATH WITH EXERTION. PT WAS HAVING MIDDLE LOWER CHEST PAIN UPON ADMISSION BUT HAS BEEN SLEEPING THROUGH THE EVENING W/O COMPLICATIONS. PT MADE NPO FOR POSSIBLE STRESS TODAY. PER ER REPORT, PT WAS TOLD THAT HE WOULD BE HAVING STRESS TEST BUT HAVE NOT SEEN ORDERS. HOSPITALIST AWARE. TROPONIN CONTINUE TO REMAIN LOW. PT ON TELE RUNNING SINUS RHYTHM. IV IN L. HAND FLUSHING W/O COMPLICATIONS. CALL LIGHT IN REACH. BED IN LOWEST POSITION. WILL CONTINUE TO MONITOR.
[2022-11-07 05:22] VITALS: BP 119/90
[2022-11-07 05:27] VITALS: BP 118/55
[2022-11-07 07:19] VITALS: BP 120/61
[2022-11-07 16:10] VITALS: BP 134/66
--- NOTE | 2022-11-07 17:53 | NUR ---
SHIFT SUMMARY NO ACUTE CHANGES DURING SHIFT. PT ALERT AND ORIENTED, CALLS APPROPRIATELY. PT ON RA, INDEPENDENT IN ROOM. PT COMPLETED FIRST PORTION OF STRESS TEST TODAY, SCHEDULED TO COMPLETE 2ND PORTION TOMORROW AT 10. NO C/O CP, SLIGHT SOB PERIODICALLY FOLLOWING AMBULATION. WILL CONTINUE TO MONITOR, CALL LIGHT WITHIN REACH.
[2022-11-08 03:26] VITALS: BP 126/78
--- NOTE | 2022-11-08 04:03 | NUR ---
SHIFT SUMMARY PATIENT HAD NO ACUTE CHANGES. AXOX 4 AND INDEPENDENT IN ROOM. NPO FOR SECOND PART OF STRESS TEST TODAY 11/08/22. DENIES CHEST PAIN AND N/V. VSS/AFEBRILE.SOB W/EXERTION. PIV REMAINS INTACT. TELE MONITOR NSR 91. COOPERATIVE WITH CARE. CALL LIGHT IN REACH. BED IN LOWEST POSITION. WILL CONTINUE TO MONITOR UNTIL DAY SHIFT NURSE ASSUMES CARE.
[2022-11-08 05:08] LABS: Hematocrit 37.1 % (37.0-53.0); Hemoglobin 12.7 g/dL (13.5-17.5); Mean Corpuscular HGB 30.1 pg (26.0-34.0); Mean Corpuscular HGB Conc 34.2 g/dL (31.5-36.5); Mean Corpuscular Volume 88 fL (80-100); Mean Platelet Volume 9.7 fL (9.1-12.4); Platelet Count 186 K/mm3 (150-400); RDW Coefficient Variation 13.8 % (11.7-14.2); RDW Standard Deviation 44.4 fL (35.1-46.3); Red Blood Cell Count 4.22 M/mm3 (4.30-5.90); White Blood Cell Count 5.91 K/mm3 (4.00-11.30)
[2022-11-08 05:54] LABS: Alanine Aminotransfer (ALT/SGP 30 U/L (12-78); Albumin, Blood 3.3 g/dL (3.4-5.0); Albumin/Globulin Ratio 1.1 (0.8-1.8); Alk Phos 67 U/L (50-136); Anion Gap 7 mmol/L (6-16); Aspartate Aminotrans (AST/SGOT 23 U/L (12-37); Bilirubin, Total 0.4 mg/dL (0.1-1.0); Blood Urea Nitrogen 22 mg/dL (8-24); Bun/Creatinine Ratio 17.5 (12.0-20.0); CO2, Blood 26 mmol/L (21-32); Calcium, Blood 8.4 mg/dL (8.5-10.1); Chloride, Blood 109 mmol/L (98-108); Cholesterol 152 mg/dL (50-200); Creatinine, Blood 1.26 mg/dL (0.60-1.20); Glomerular Filtration Rate 59 (60-); Glucose, Blood 111 mg/dL (70-99); HDL Cholesterol 38 mg/dL (>39); LDL/HDL RATIO 2.3; Low Density Lipoprotein Chol 87 mg/dL (0-110); Potassium, Blood 3.9 mmol/L (3.5-5.5); Sodium, Blood 142 mmol/L (136-145); Thyroid Stimulating Hormone 0.097 uIU/mL (0.360-4.800); Total Protein, Blood 6.3 g/dL (6.4-8.2); Triglycerides 133 mg/dL (30-160); Very Low Density Lipoprot Chol 27 mg/dL (6-32)
[2022-11-08 07:50] VITALS: BP 99/65
[2022-11-08 09:27] VITALS: BP 135/64
[2022-11-08 16:07] VITALS: BP 113/67
--- NOTE | 2022-11-08 16:46 | NUR ---
SHIFT SUMMARY- PT FINISHED THE SECOND PART OF HIS STRESS TEST THIS SHIFT. WENT FOR A CT THIS SHIFT. HE IS EATING AND DRINKING WELL. HE SLEPT INTERMITENTLY DRUING THIS SHIFT. HE IS INDEPENTDENT IN THE ROOM. HE HAD ONE EPISODE OF NUMBNESS AND PAIN IN HIS ARM, RESOLVED QUICKLY. REPORTED THAT HE HAD A SIMMILAR EXPERIENCE SEVERAL WEEKS AGO. NOTIFIED PROVIDER. HIS BED IS IN THE LOW POSITON AND CALL LIGHT IS WITHIN REACH.
[2022-11-08 20:15] VITALS: BP 129/68
--- NOTE | 2022-11-09 03:59 | NUR ---
SHIFT SUMMERY, PT UP EALIER ABULATING IN BUNN, PT DENIED ANY CHEST PAIN. PT TALKING ABOUT POSIBLITY OF GOING HOME TODAY. PT APPEARD TO SLEEP WELL FOR A WHILE CALL LIGHT IN REACH,
[2022-11-09 04:03] VITALS: BP 140/82
[2022-11-09 05:43] LABS: Hematocrit 39.7 % (37.0-53.0); Hemoglobin 13.5 g/dL (13.5-17.5); Mean Corpuscular HGB 30.3 pg (26.0-34.0); Mean Corpuscular Volume 89 fL (80-100); Mean Platelet Volume 9.7 fL (9.1-12.4); Platelet Count 193 K/mm3 (150-400); RDW Coefficient Variation 13.7 % (11.7-14.2); RDW Standard Deviation 44.5 fL (35.1-46.3); Red Blood Cell Count 4.45 M/mm3 (4.30-5.90)
[2022-11-09 06:11] LABS: Albumin, Blood 3.7 g/dL (3.4-5.0); Albumin/Globulin Ratio 1.1 (0.8-1.8); Bilirubin, Total 0.7 mg/dL (0.1-1.0); Bun/Creatinine Ratio 18.4 (12.0-20.0); Calcium, Blood 8.9 mg/dL (8.5-10.1); Creatinine, Blood 1.25 mg/dL (0.60-1.20); Globulin, Blood 3.4 g/dL (2.2-4.0); Potassium, Blood 4.1 mmol/L (3.5-5.5); Total Protein, Blood 7.1 g/dL (6.4-8.2)
[2022-11-09 07:09] VITALS: BP 120/63
[2022-11-09] MEDS ORDERED: MIRT30ST PO (11:05)
[2022-11-09] MEDS ORDERED: SUCR1 PO (11:06)
--- NOTE | 2022-11-09 12:36 | NUR ---
DISCHARGE SUMMARY S/P CP, A/OX4, VSS, TOLERATING PO, INDEPENDENT IN THE ROOM, DENIES PAIN. MD REVIEWED IMAGING AND LABS WITH THE PATIENT AND CLEARED HIM FOR DC. DISCHARGE INSTUCTIONS PROVIDED TO PT INCLUDING HOME CARE, MEDICATION CHANGES, AND FOLLOW UP APPOINTMENTS. PT HAD NO QUESTIONS AT TIME OF DISCHARGE. IV REMOVED, PT ESCORTED OUT TO PRIVATE AUTO VIA WC.
== END 2022-11-09 12:00 | disposition home or self-care (01) | DRG 313 ==
LOC: ER 18:09 → MEDS 21:42
PROVIDERS: Internal Medicine; Student in an Organized Health Care Education/Training Program; ADMIT Student in an Organized Health Care Education/Training Program
DX: R07.89 Other chest pain (principal); I50.32 Chronic diastolic (congestive) heart failure; N17.9 Acute kidney failure, unspecified; J44.9 Chronic obstructive pulmonary disease, unspecified; E78.00 Pure hypercholesterolemia, unspecified; I25.10 Atherosclerotic heart disease of native coronary artery without angina pectoris; G89.29 Other chronic pain; I35.0 Nonrheumatic aortic (valve) stenosis; M54.50 Low back pain, unspecified; D64.9 Anemia, unspecified; K21.9 Gastro-esophageal reflux disease without esophagitis; I11.0 Hypertensive heart disease with heart failure; N40.0 Benign prostatic hyperplasia without lower urinary tract symptoms; E03.9 Hypothyroidism, unspecified; F43.10 Post-traumatic stress disorder, unspecified; G47.33 Obstructive sleep apnea (adult) (pediatric); Z95.5 Presence of coronary angioplasty implant and graft; Z79.890 Hormone replacement therapy; Z90.89 Acquired absence of other organs; Z88.8 Allergy status to other drugs, medicaments and biological substances; Z98.52 Vasectomy status; Z85.118 Personal history of other malignant neoplasm of bronchus and lung; Z79.82 Long term (current) use of aspirin; Z79.899 Other long term (current) drug therapy
CPT/HCPCS: 36415; 71046; 71250; 78452; 80053; 80061; 83880; 84443; 84484; 85025; 85027; 85651; 93005; 93010; 93017; 94640; 94664; 94760; 94762; 96372; 96374; 99285-25; A9270; A9500; G0378; J0706; J1650; J2785

== ENCOUNTER 2023-10-10 21:01 | Emergency (ER) | payer OTHER ==
[~2023-10-10] VITALS: Ht 177.8 cm; Wt 71.2 kg
[~2023-10-10 21:01] MED LIST changes: +MIRT30ST PO; +SUCR1 PO
[2023-10-10 21:36] LABS: BASOPHILS ABSOLUTE AUTO 0.05 K/mm3 (0.00-0.23); BASOPHILS PERCENT AUTO 1 % (0-2); EOSINOPHILS ABSOLUTE AUTO 0.26 K/mm3 (0.00-0.68); EOSINOPHILS PERCENT AUTO 4 % (0-6); Hematocrit 39.7 % (37.0-53.0); Hemoglobin 13.7 g/dL (13.5-17.5); IMMATURE GRAN ABSOLUTE AUTO 0.01 K/mm3 (0.00-0.10); IMMATURE GRAN PERCENT AUTO 0 % (0-1); LYMPHOCYTES ABSOLUTE AUTO 1.94 K/mm3 (0.84-5.20); LYMPHOCYTES PERCENT AUTO 27 % (21-46); MONOCYTES ABSOLUTE AUTO 0.84 K/mm3 (0.16-1.47); MONOCYTES PERCENT AUTO 12 % (4-13); Mean Corpuscular HGB 30.8 pg (26.0-34.0); Mean Corpuscular HGB Conc 34.5 g/dL (31.5-36.5); Mean Corpuscular Volume 89 fL (80-100); Mean Platelet Volume 9.5 fL (9.1-12.4); NEUTROPHILS PERCENT AUTO 58 % (41-73); Platelet Count 222 K/mm3 (150-400); RDW Coefficient Variation 13.4 % (11.7-14.2); RDW Standard Deviation 43.6 fL (35.1-46.3); Red Blood Cell Count 4.45 M/mm3 (4.30-5.90)
[2023-10-10 21:54] LABS: Albumin/Globulin Ratio 1.2 (0.8-1.8); Bilirubin, Total 0.3 mg/dL (0.1-1.0); Bun/Creatinine Ratio 16.8 (12.0-20.0); Calcium, Blood 8.6 mg/dL (8.5-10.1); Creatinine, Blood 1.13 mg/dL (0.60-1.20); Globulin, Blood 3.3 g/dL (2.2-4.0); Potassium, Blood 3.7 mmol/L (3.5-5.5); Total Protein, Blood 7.3 g/dL (6.4-8.2)
[2023-10-10] MEDS ORDERED: AMLO10 PO (21:56)
[2023-10-10] MEDS ORDERED: ALBU90OI INH (21:56)
[2023-10-10] MEDS ORDERED: CLOT10 MT (22:02)
[2023-10-10] MEDS ORDERED: FAMO20 PO (22:04)
[2023-10-10] MEDS ORDERED: Flonase 0.05% N16 GM (22:05)
[2023-10-10] MEDS ORDERED: EUTHYROX88 MCG PO (22:06)
[2023-10-10] MEDS ORDERED: MOXIOPS RIGHTEYE (22:07)
[2023-10-10] MEDS ORDERED: NITR.4SL SL (22:08)
[2023-10-10 22:30] VITALS: BP 147/66
[2023-10-10 23:31] LABS: Magnesium, Blood 2.2 mg/dL (1.6-2.4); Thyroid Stimulating Hormone 0.997 uIU/mL (0.360-4.800)
[2023-10-10 23:32] LABS: Phosphorus, Blood 3.4 mg/dL (2.5-4.9)
== END 2023-10-11 00:08 | disposition home or self-care (01) ==
LOC: ER 21:01
PROVIDERS: Student in an Organized Health Care Education/Training Program
DX: R00.1 Bradycardia, unspecified (principal); J44.9 Chronic obstructive pulmonary disease, unspecified; I11.0 Hypertensive heart disease with heart failure; I50.32 Chronic diastolic (congestive) heart failure; E78.00 Pure hypercholesterolemia, unspecified; I25.10 Atherosclerotic heart disease of native coronary artery without angina pectoris; G89.29 Other chronic pain; K21.9 Gastro-esophageal reflux disease without esophagitis; N40.0 Benign prostatic hyperplasia without lower urinary tract symptoms; E03.9 Hypothyroidism, unspecified; F43.10 Post-traumatic stress disorder, unspecified; G47.33 Obstructive sleep apnea (adult) (pediatric); Z88.8 Allergy status to other drugs, medicaments and biological substances; Z91.041 Radiographic dye allergy status; Z79.51 Long term (current) use of inhaled steroids; Z79.890 Hormone replacement therapy; Z79.899 Other long term (current) drug therapy; Z79.82 Long term (current) use of aspirin; Z79.02 Long term (current) use of antithrombotics/antiplatelets
CPT/HCPCS: 71046; 80053; 83735; 84100; 84443; 84484; 85025; 85730; 93005; 93010

== ENCOUNTER 2023-10-14 06:44 | Emergency (ER) | payer OTHER ==
[~2023-10-14] VITALS: Ht 177.8 cm; Wt 89.4 kg
[~2023-10-14 06:44] MED LIST changes: +AMLO10 PO; +CLOT10 MT; +EUTHYROX88 MCG PO; +Flonase 0.05% N16 GM; +MOXIOPS RIGHTEYE; +NITR.4SL SL
[2023-10-14 07:07] LABS: BASOPHILS ABSOLUTE AUTO 0.05 K/mm3 (0.00-0.23); BASOPHILS PERCENT AUTO 1 % (0-2); EOSINOPHILS ABSOLUTE AUTO 0.36 K/mm3 (0.00-0.68); EOSINOPHILS PERCENT AUTO 6 % (0-6); Hematocrit 38.4 % (37.0-53.0); Hemoglobin 13.4 g/dL (13.5-17.5); IMMATURE GRAN ABSOLUTE AUTO 0.02 K/mm3 (0.00-0.10); IMMATURE GRAN PERCENT AUTO 0 % (0-1); LYMPHOCYTES ABSOLUTE AUTO 1.71 K/mm3 (0.84-5.20); LYMPHOCYTES PERCENT AUTO 27 % (21-46); MONOCYTES ABSOLUTE AUTO 0.74 K/mm3 (0.16-1.47); MONOCYTES PERCENT AUTO 12 % (4-13); Mean Corpuscular HGB 31.2 pg (26.0-34.0); Mean Corpuscular HGB Conc 34.9 g/dL (31.5-36.5); Mean Corpuscular Volume 90 fL (80-100); Mean Platelet Volume 9.6 fL (9.1-12.4); NEUTROPHILS ABSOLUTE AUTO 3.58 K/mm3 (1.96-9.15); NEUTROPHILS PERCENT AUTO 55 % (41-73); Platelet Count 201 K/mm3 (150-400); RDW Coefficient Variation 13.2 % (11.7-14.2); RDW Standard Deviation 43.7 fL (35.1-46.3); Red Blood Cell Count 4.29 M/mm3 (4.30-5.90); White Blood Cell Count 6.46 K/mm3 (4.00-11.30)
[2023-10-14 07:37] LABS: Albumin, Blood 3.7 g/dL (3.4-5.0); Albumin/Globulin Ratio 1.2 (0.8-1.8); Bilirubin, Total 0.3 mg/dL (0.1-1.0); Bun/Creatinine Ratio 18.8 (12.0-20.0); Calcium, Blood 8.7 mg/dL (8.5-10.1); Creatinine, Blood 1.01 mg/dL (0.60-1.20); Globulin, Blood 3.1 g/dL (2.2-4.0); Magnesium, Blood 2.4 mg/dL (1.6-2.4); Potassium, Blood 4.1 mmol/L (3.5-5.5); Total Protein, Blood 6.8 g/dL (6.4-8.2)
[2023-10-14 09:30] VITALS: BP 134/108
== END 2023-10-14 10:09 | disposition home or self-care (01) ==
LOC: ER 06:44
PROVIDERS: Student in an Organized Health Care Education/Training Program
DX: R00.1 Bradycardia, unspecified (principal); E03.9 Hypothyroidism, unspecified; I11.0 Hypertensive heart disease with heart failure; I50.32 Chronic diastolic (congestive) heart failure; I25.10 Atherosclerotic heart disease of native coronary artery without angina pectoris; K21.9 Gastro-esophageal reflux disease without esophagitis; Z88.8 Allergy status to other drugs, medicaments and biological substances; Z79.899 Other long term (current) drug therapy; Z79.890 Hormone replacement therapy; Z79.82 Long term (current) use of aspirin; Z95.5 Presence of coronary angioplasty implant and graft; Z87.891 Personal history of nicotine dependence
CPT/HCPCS: 71046; 80053; 83735; 85025

== ENCOUNTER 2023-10-31 14:54 | Emergency (ER) | payer OTHER ==
[~2023-10-31] VITALS: Ht 177.8 cm; Wt 90.3 kg
[2023-10-31 15:45] LABS: BASOPHILS ABSOLUTE AUTO 0.06 K/mm3 (0.00-0.23); BASOPHILS PERCENT AUTO 1 % (0-2); EOSINOPHILS ABSOLUTE AUTO 0.23 K/mm3 (0.00-0.68); EOSINOPHILS PERCENT AUTO 3 % (0-6); Hematocrit 40.7 % (37.0-53.0); Hemoglobin 14.1 g/dL (13.5-17.5); IMMATURE GRAN ABSOLUTE AUTO 0.02 K/mm3 (0.00-0.10); IMMATURE GRAN PERCENT AUTO 0 % (0-1); LYMPHOCYTES ABSOLUTE AUTO 1.91 K/mm3 (0.84-5.20); LYMPHOCYTES PERCENT AUTO 26 % (21-46); MONOCYTES ABSOLUTE AUTO 0.83 K/mm3 (0.16-1.47); MONOCYTES PERCENT AUTO 11 % (4-13); Mean Corpuscular HGB 31.3 pg (26.0-34.0); Mean Corpuscular HGB Conc 34.6 g/dL (31.5-36.5); Mean Corpuscular Volume 90 fL (80-100); Mean Platelet Volume 10.3 fL (9.1-12.4); NEUTROPHILS ABSOLUTE AUTO 4.43 K/mm3 (1.96-9.15); NEUTROPHILS PERCENT AUTO 59 % (41-73); Platelet Count 199 K/mm3 (150-400); RDW Coefficient Variation 13.2 % (11.7-14.2); RDW Standard Deviation 43.8 fL (35.1-46.3); White Blood Cell Count 7.48 K/mm3 (4.00-11.30)
[2023-10-31 16:38] LABS: Albumin/Globulin Ratio 1.3 (0.8-1.8); Bilirubin, Total 0.5 mg/dL (0.1-1.0); Bun/Creatinine Ratio 16.4 (12.0-20.0); Calcium, Blood 8.8 mg/dL (8.5-10.1); Creatinine, Blood 1.16 mg/dL (0.60-1.20); Globulin, Blood 3.1 g/dL (2.2-4.0); Total Protein, Blood 7.1 g/dL (6.4-8.2)
[2023-10-31] MEDS ORDERED: PredniSONE 20 MG Tab PO ONE (18:10)
[2023-10-31] MEDS ORDERED: Ipratropium/Albuterol SulF 2.5-0.5MG/3 ML Amp INH ONE (18:15)
[2023-10-31 18:45] VITALS: BP 131/86
[2023-10-31] MEDS ORDERED: AZIT250 PO (19:01)
[2023-10-31] MEDS ORDERED: PRED20 PO (19:01)
== END 2023-10-31 19:26 | disposition home or self-care (01) ==
LOC: ER 14:54
PROVIDERS: Student in an Organized Health Care Education/Training Program
DX: J44.1 Chronic obstructive pulmonary disease with (acute) exacerbation (principal); I11.0 Hypertensive heart disease with heart failure; I50.32 Chronic diastolic (congestive) heart failure; G47.33 Obstructive sleep apnea (adult) (pediatric); E78.00 Pure hypercholesterolemia, unspecified; I25.10 Atherosclerotic heart disease of native coronary artery without angina pectoris; G89.29 Other chronic pain; K21.9 Gastro-esophageal reflux disease without esophagitis; N40.0 Benign prostatic hyperplasia without lower urinary tract symptoms; E03.9 Hypothyroidism, unspecified; F43.10 Post-traumatic stress disorder, unspecified; Z87.891 Personal history of nicotine dependence; Z88.8 Allergy status to other drugs, medicaments and biological substances; Z91.041 Radiographic dye allergy status; Z79.51 Long term (current) use of inhaled steroids; Z79.890 Hormone replacement therapy; Z79.899 Other long term (current) drug therapy; Z79.82 Long term (current) use of aspirin; Z79.02 Long term (current) use of antithrombotics/antiplatelets
CPT/HCPCS: 71046; 80053; 83880; 85025; 93005; 93010; 94640; 94664; 99285-25; J7512

== ENCOUNTER 2023-12-24 18:26 | Observation (INO) | payer OTHER ==
[~2023-12-24] VITALS: Ht 177.8 cm; Wt 89.0 kg
[~2023-12-24 18:26] MED LIST changes: +AZIT250 PO
[2023-12-24 19:20] LABS: BASOPHILS ABSOLUTE AUTO 0.07 K/mm3 (0.00-0.23); BASOPHILS PERCENT AUTO 1 % (0-2); EOSINOPHILS ABSOLUTE AUTO 0.28 K/mm3 (0.00-0.68); EOSINOPHILS PERCENT AUTO 3 % (0-6); Hematocrit 42.4 % (37.0-53.0); Hemoglobin 14.8 g/dL (13.5-17.5); IMMATURE GRAN ABSOLUTE AUTO 0.02 K/mm3 (0.00-0.10); IMMATURE GRAN PERCENT AUTO 0 % (0-1); LYMPHOCYTES ABSOLUTE AUTO 2.24 K/mm3 (0.84-5.20); LYMPHOCYTES PERCENT AUTO 27 % (21-46); MONOCYTES ABSOLUTE AUTO 0.87 K/mm3 (0.16-1.47); MONOCYTES PERCENT AUTO 11 % (4-13); Mean Corpuscular HGB 30.6 pg (26.0-34.0); Mean Corpuscular HGB Conc 34.9 g/dL (31.5-36.5); Mean Corpuscular Volume 88 fL (80-100); Mean Platelet Volume 9.2 fL (9.1-12.4); NEUTROPHILS ABSOLUTE AUTO 4.71 K/mm3 (1.96-9.15); NEUTROPHILS PERCENT AUTO 58 % (41-73); Platelet Count 211 K/mm3 (150-400); RDW Standard Deviation 41.8 fL (35.1-46.3); Red Blood Cell Count 4.83 M/mm3 (4.30-5.90); White Blood Cell Count 8.19 K/mm3 (4.00-11.30)
[2023-12-24 19:42] LABS: Magnesium, Blood 2.5 mg/dL (1.6-2.4)
[2023-12-24 19:43] LABS: Albumin, Blood 4.2 g/dL (3.4-5.0); Albumin/Globulin Ratio 1.2 (0.8-1.8); Bilirubin, Total 0.4 mg/dL (0.1-1.0); Bun/Creatinine Ratio 22.4 (12.0-20.0); Calcium, Blood 8.7 mg/dL (8.5-10.1); Creatinine, Blood 1.16 mg/dL (0.60-1.20); Globulin, Blood 3.5 g/dL (2.2-4.0); Potassium, Blood 3.8 mmol/L (3.5-5.5); Total Protein, Blood 7.7 g/dL (6.4-8.2)
[2023-12-24 19:55] LABS: Influenza A, PCR NEGATIVE (NEGATIVE); Influenza B, PCR NEGATIVE (NEGATIVE); Resp Syncytial Virus, PCR NEGATIVE (NEGATIVE); SARS-Cov-2 (COVID-19) PCR, MMC NEGATIVE (NEGATIVE)
[2023-12-24] MEDS ORDERED: Ondansetron HCl 2 MG / ML 2ML Vial IV PRN (22:25)
[2023-12-24] MEDS ORDERED: NS 1,000 ML IV SCH (22:25)
[2023-12-24 22:40] LABS: Source, Urine Clean Catch
[2023-12-24 22:41] LABS: Bilirubin, Urine Neg (Neg); Blood, Urine Neg (Neg); Glucose Qualitative, Urine Neg (Neg); Ketones, Urine Neg (Neg); Leukocyte Esterase, Urine Neg (Neg); Nitrite, Urine Neg (Neg); Protein, Urine Neg (Neg); Urobilinogen, Urine NORM (Normal)
[2023-12-24 22:53] LABS: Appearance, Urine Clear (Clear); Color, Urine Yellow (P-Yellow)
[2023-12-25 00:04] VITALS: BP 137/122
[2023-12-25 00:06] VITALS: BP 141/74
[2023-12-25] MEDS ORDERED: Potassium Chloride 40 MEQ in NS 250 ML IV STA (00:48)
[2023-12-25 03:26] LABS: BASOPHILS ABSOLUTE AUTO 0.04 K/mm3 (0.00-0.23); BASOPHILS PERCENT AUTO 1 % (0-2); EOSINOPHILS ABSOLUTE AUTO 0.25 K/mm3 (0.00-0.68); EOSINOPHILS PERCENT AUTO 4 % (0-6); Hematocrit 39.2 % (37.0-53.0); Hemoglobin 13.7 g/dL (13.5-17.5); IMMATURE GRAN ABSOLUTE AUTO 0.02 K/mm3 (0.00-0.10); IMMATURE GRAN PERCENT AUTO 0 % (0-1); LYMPHOCYTES ABSOLUTE AUTO 1.73 K/mm3 (0.84-5.20); LYMPHOCYTES PERCENT AUTO 26 % (21-46); MONOCYTES ABSOLUTE AUTO 0.76 K/mm3 (0.16-1.47); MONOCYTES PERCENT AUTO 12 % (4-13); Mean Corpuscular HGB 30.9 pg (26.0-34.0); Mean Corpuscular HGB Conc 34.9 g/dL (31.5-36.5); Mean Corpuscular Volume 88 fL (80-100); Mean Platelet Volume 9.5 fL (9.1-12.4); NEUTROPHILS ABSOLUTE AUTO 3.77 K/mm3 (1.96-9.15); NEUTROPHILS PERCENT AUTO 57 % (41-73); Platelet Count 192 K/mm3 (150-400); RDW Standard Deviation 42.3 fL (35.1-46.3); Red Blood Cell Count 4.44 M/mm3 (4.30-5.90); White Blood Cell Count 6.57 K/mm3 (4.00-11.30)
[2023-12-25 04:32] LABS: Free Thyroxine 1.01 ng/dL (0.70-1.60); Thyroid Stimulating Hormone 0.921 uIU/mL (0.360-4.800)
[2023-12-25 04:33] LABS: Albumin, Blood 3.6 g/dL (3.4-5.0); Albumin/Globulin Ratio 1.1 (0.8-1.8); Bilirubin, Total 0.5 mg/dL (0.1-1.0); Calcium, Blood 8.4 mg/dL (8.5-10.1); Creatinine, Blood 1.2 mg/dL (0.60-1.20); Globulin, Blood 3.2 g/dL (2.2-4.0); Potassium, Blood 3.9 mmol/L (3.5-5.5); Total Protein, Blood 6.8 g/dL (6.4-8.2)
[2023-12-25 05:02] VITALS: BP 141/68
--- NOTE | 2023-12-25 05:59 | NUR ---
SHIFT SUMMARY PT A&OX4 AND ANSWERS QUESTIONS APPROPRIATELY. PT ARRIVED ON UNIT AT 2349 AND AMBULATED INDEPENDENTLY FROM W/C TO BED. RUNNING NSR ON CONTINUOUS TELEMETRY. RECEIVED IV POTASSIUM. PT ORIENTED TO ROOM AND UNIT. VSS, NO COMPLAINTS OF CP/PRESSURE. SOB W/ EXCERSION. PT SPENT HALF OF SHIFT IN BED W/ EYES CLOSED AND RESPIRATIONS EVEN AND UNLABORED. NO ACUTE EVENTS AT THIS TIME. PT LEFT IN A POSITION OF SAFETY WITH FALL PRECAUTIONS IN PLACE AND CALL LIGHT IN REACH. PT INDEPENDENTLY REPOSITIONED THROUGH SHIFT.
[2023-12-25] MEDS ORDERED: Acetaminophen 325 MG TABLET PO PRN (06:05)
[2023-12-25] MEDS ORDERED: Nitroglycerin 0.4 MG SUBL SL PRN (06:05)
[2023-12-25] MEDS ORDERED: Albuterol HFA200 ACT/6.7 GM INH INH PRN (06:15)
[2023-12-25] MEDS ORDERED: Levothyroxine Sodium 0.088 MG Tab PO SCH (06:30)
[2023-12-25 08:04] VITALS: BP 133/78
[2023-12-25] MEDS ORDERED: Pantoprazole Sodium 40 MG Tab PO SCH (09:00)
[2023-12-25] MEDS ORDERED: Losartan Potassium 50 MG Tab PO SCH (09:00)
[2023-12-25] MEDS ORDERED: Famotidine 20 MG Tab PO SCH (09:00)
[2023-12-25] MEDS ORDERED: AmLODIPine Besylate 5 MG Tab PO SCH (09:00)
[2023-12-25] MEDS ORDERED: Fluticasone 0.05% Nasal Spray SCH (09:00)
[2023-12-25] MEDS ORDERED: Enoxaparin 40 MG/0.4 ML SYR SC SCH (09:00)
[2023-12-25] MEDS ORDERED: Aspirin 81 MG TabEC PO SCH (09:00)
[2023-12-25] MEDS ORDERED: Furosemide 40 MG Tab PO SCH (09:00)
[2023-12-25] MEDS ORDERED: Finasteride 5 MG Tab PO SCH (09:00)
[2023-12-25 15:33] VITALS: BP 113/54
[2023-12-25] MEDS ORDERED: Albuterol 2.5 MG/3 ML VIAL INH SCH (16:00)
[2023-12-25] MEDS ORDERED: Tiotropium Bromide 2.5 MCG/ACT MIST INHAL (10 ACT/4 GM) INH SCH (16:00)
[2023-12-25] MEDS ORDERED: Albuterol 2.5 MG/3 ML VIAL INH PRN (16:00)
--- NOTE | 2023-12-25 16:26 | NUR ---
"Spiritual Care Visit | Pt. request Pt. is a wake in bed and welcomes my visit. Pt. is pleasant and verbalized that he was looking forward to this administrative law judge's visit. Facilitate a lengthy life review and considered matters of lawrence and belief. Pt. was unsettled by an uncertain diagnosis and the lack of information. Sought to normalize the Pt. expereince. Prayed with the Pt. Pt. verbalized gratitude for the spiritual care visit."
--- NOTE | 2023-12-25 17:24 | NUR ---
PATIENT A/O X4, UP INDEPENDENTLY. NSR ON TELE THIS AM AND BEGAN HAVING MORE PVC'S THIS AFTERNOON. PATIENT DENIES ANY SYMPTOMS AND HR REMAINS 60-70'S. VSS, ON RA. BREATHING TX PER RT. CELY CUEVA RECORDS RECEIVED FROM LORENZO THORNTON'S OFFICE AND PLACED ON CHART. NO NEW CONCERNS THIS SHIFT. PATIENT ABLE TO COMUNICATE NEEDS AND HAS FAMILY SUPPORT.
[2023-12-25 20:14] VITALS: BP 110/86
[2023-12-25] MEDS ORDERED: Mirtazapine 30 MG SoluTab PO SCH (21:00)
[2023-12-26 03:38] VITALS: BP 116/74
--- NOTE | 2023-12-26 06:04 | NUR ---
SHIFT SUMMARY PT A&OX4 AND ANSWERS QUESTIONS APPROPRIATELY. PT ON CONTINUOUS TELEMETRY AND MAINTAINED NSR THROUGH THE NIGHT. VSS, NO COMPLAINTS OF CP/PRESSURE, NO SOB AT THIS TIME. PT RECEIVED HS MEDICATIONS. PT SPENT MOST OF SHIFT WITH EYES CLOSED AND RESPIRATIONS EVEN AND UNLABORED. NO ACUTE EVENTS AT THIS TIME. PT INDEPENDENTLY REPOSITIONED THROUGHOUT THE NIGHT. PT LEFT IN A POSITION OF SAFETY WITH PROPER FALL PRECAUTIONS IN PLACE AND CALL LIGHT IN REACH.
[2023-12-26 07:40] VITALS: BP 139/75
[2023-12-26 16:47] VITALS: BP 141/77
--- NOTE | 2023-12-26 17:22 | NUR ---
PATIENT A/O X4, UP INDEPENDENTLY IN ROOM. VSS, ON RA. BREATHING TX PER RT. RECLAMATION WORKER DR LEE AT BEDSIDE THIS AFTERNOON AND PLANS TO DO AN ANGIOGRAM TOMORROW AM. PREDNISONE SCHEDULE X3 DOSES STARTING THIS EVENING DUE TO ALLERGY TO CONTRAST IN THE PAST. PATIENT WILL BE NPO AT MIDNIGHT. SINUS RHYTHM/SINUS PEDRO ON TELEMETY TODAY. PATIENT DENIES ANY CHEST PAIN OR PRESSURE. CALLS APPROPRIATELY FOR ASSISTANCE AND IS ABLE TO MAKE NEEDS KNOWN.
[2023-12-26 19:33] VITALS: BP 130/72
[2023-12-26] MEDS ORDERED: PredniSONE 20 MG Tab PO ONE (20:00)
[2023-12-26] MEDS ORDERED: PredniSONE 20 MG Tab PO SCH (20:00)
[2023-12-27] MEDS ORDERED: PredniSONE 20 MG Tab PO SCH ×2 (02:00→08:00)
[2023-12-27] MEDS ORDERED: PredniSONE 20 MG Tab PO ONE ×2 (02:00→08:00)
[2023-12-27 03:47] VITALS: BP 113/83
--- NOTE | 2023-12-27 06:32 | NUR ---
SHIFT SUMMARY: Pt is admitted for Bradycardia and is a full code. Is alert and able to make needs known. ADLs have been IND only calling staff for minor needs. Guero pain or discomfort when asked. Telly reports sinus in the 70s. Has been NPO starting at midnight due to a procedure today.
[2023-12-27 07:11] VITALS: BP 131/69
[2023-12-27] MEDS ORDERED: Verapamil HCL 2.5 MG/ML 2ML Injection ONE (08:02)
[2023-12-27] MEDS ORDERED: Nitroglycerin 2 MG/20 ML BTL ONE (08:03)
[2023-12-27] MEDS ORDERED: NS 1,000 ML IV ONE ×2 (08:03→09:02)
[2023-12-27] MEDS ORDERED: Heparin Sodium 1000 Units/ML 10ML MDV ONE (08:03)
[2023-12-27] MEDS ORDERED: NS 250 ML IV ONE (08:03)
--- NOTE | 2023-12-27 08:15 | NUR ---
pt resting in bed awake visiting with family, a/ox4, pleasant and cooperative with care, follows commands well, denies pain at this time, states he feels pretty good, lungs are dim with faint exp wheezing t/o, on r/a, resp even and unlabored, has productive cough, hrr, tele in place running sr in 50's to 70's, with pacs, edema noted to right lower ext, ppp faint, cap refill <3 sec, vs stable, afebrile, piv to lac, site is clear and patent, btx4, abd flat soft nontender, voids without diff via urinal, skin c/w/d, maew, hortencia, call light in reach. will be having angio this am, held lovenox for that procedure, and lasix.
--- NOTE | 2023-12-27 08:57 | NUR ---
pt left for angio gram via wheelchair with heart center nurse. family took belongings and will wait in waiting room for him.
[2023-12-27] MEDS ORDERED: EpiNEPhrine 1 MG/1 ML 1ML Vial ONE (09:01)
[2023-12-27] MEDS ORDERED: DiphenhydrAMINE HCl 50 MG/ML 1ML Vial ONE (09:01)
[2023-12-27] MEDS ORDERED: FentaNYL Citrate 50 MCG/ML 2 ML Injection ONE (09:02)
[2023-12-27] MEDS ORDERED: Midazolam HCl 1MG / ML 2ML Vial ONE (09:02)
[2023-12-27] MEDS ORDERED: Hydrocortisone Sod Succinate 100 MG Vial ONE (09:09)
[2023-12-27] MEDS ORDERED: Famotidine 10 MG/ML 2ML Vial ONE (09:10)
[2023-12-27 10:24] VITALS: BP 139/64
[2023-12-27 10:30] VITALS: BP 122/104
[2023-12-27 10:45] VITALS: BP 129/91
[2023-12-27 11:00] VITALS: BP 106/77
[2023-12-27] MEDS ORDERED: METO25ER PO (13:58)
--- NOTE | 2023-12-27 15:02 | NUR ---
Pt. is dressed and awaiting discharge when he welcomes my visit at the doorway to his room. Pt. is pleasant and displays evidence of being confidant about going home. Pt. also displayed having a strong support system. Pt. vebralized gratitude for the spiritual care support and requested this lining feller to let his medical floor staff know that he was grateful for the care he received from them.
--- NOTE | 2023-12-27 15:27 | NUR ---
NURSING PCU DISCHARGE SUMMARY: No significant changes since arrival to unit. Radial site recovered w/o difficlty, tegaderm and wrist board in place. Amr Physician cleared for discharge home, new t/o received. Dicharge home d/o received. Pt verbalized understanding of all written and verbal discharge instructions, PIV dc'd w/cath intact, Rx faxed to [place] [facility] per pt request. No s/s of acute distress, escorted from unit via w/c at approx 1500.
== END 2023-12-27 15:27 | disposition home or self-care (01) ==
LOC: ER 18:26 → MEDS 18:27 → PCU 12-27 10:15
PROVIDERS: Physician Assistant; ADMIT Internal Medicine
DX: R00.1 Bradycardia, unspecified (principal); I49.3 Ventricular premature depolarization; I25.10 Atherosclerotic heart disease of native coronary artery without angina pectoris; I35.0 Nonrheumatic aortic (valve) stenosis; J44.9 Chronic obstructive pulmonary disease, unspecified; K21.9 Gastro-esophageal reflux disease without esophagitis; E03.9 Hypothyroidism, unspecified; Z95.5 Presence of coronary angioplasty implant and graft; Z88.8 Allergy status to other drugs, medicaments and biological substances; Z79.82 Long term (current) use of aspirin; Z79.890 Hormone replacement therapy; Z79.899 Other long term (current) drug therapy
CPT/HCPCS: 0241U; 36415; 71046; 76937; 80053; 81003; 83735; 83880; 84439; 84443; 84484; 85025; 93005; 93010; 93306; 93454; 94640; 94664; 94760; 96365; 96366; 97162; 97530; 99152; 99153; 99285-25; A9270; C1769; C1887; C1894; G0378; J0171; J1200; J1644; J1720; J2250; J3010; J3480; J7030; J7050; J7512; Q9967

== ENCOUNTER 2024-09-10 14:11 | Emergency (ER) | payer OTHER ==
[~2024-09-10] VITALS: Ht 167.6 cm; Wt 72.6 kg
[~2024-09-10 14:11] MED LIST changes: +METO25ER PO
[2024-09-10] MEDS ORDERED: OXAYDO5 M1 PO (17:17)
[2024-09-10] MEDS ORDERED: Acetaminophen 500 MG Tab PO ONE (17:20)
[2024-09-10] MEDS ORDERED: Ibuprofen 600 MG Tab PO ONE (17:20)
[2024-09-10] MEDS ORDERED: OxyCODONE HCL 5 MG TAB PO ONE (17:20)
[2024-09-10 17:30] VITALS: BP 154/76
== END 2024-09-10 17:55 | disposition home or self-care (01) ==
LOC: ER 14:11
DX: S00.01XA Abrasion of scalp, initial encounter (principal); W17.89XA Other fall from one level to another, initial encounter; J44.9 Chronic obstructive pulmonary disease, unspecified; I11.0 Hypertensive heart disease with heart failure; I50.32 Chronic diastolic (congestive) heart failure; E78.00 Pure hypercholesterolemia, unspecified; I25.10 Atherosclerotic heart disease of native coronary artery without angina pectoris; K21.9 Gastro-esophageal reflux disease without esophagitis; E03.9 Hypothyroidism, unspecified; G47.33 Obstructive sleep apnea (adult) (pediatric); Z87.891 Personal history of nicotine dependence; Z95.5 Presence of coronary angioplasty implant and graft; Z88.8 Allergy status to other drugs, medicaments and biological substances; Z79.899 Other long term (current) drug therapy; Z79.890 Hormone replacement therapy; Z79.82 Long term (current) use of aspirin
CPT/HCPCS: 70450; 72125; 99284-25; A9270

== ENCOUNTER 2024-12-27 15:45 | Emergency (ER) | payer OTHER ==
[~2024-12-27] VITALS: Ht 177.8 cm; Wt 90.7 kg
[~2024-12-27 15:45] MED LIST changes: +OXAYDO5 M1 PO
[2024-12-27 16:10] LABS: BASOPHILS ABSOLUTE AUTO 0.06 K/mm3 (0.00-0.23); BASOPHILS PERCENT AUTO 1 % (0-2); EOSINOPHILS ABSOLUTE AUTO 0.22 K/mm3 (0.00-0.68); EOSINOPHILS PERCENT AUTO 3 % (0-6); Hematocrit 39.1 % (37.0-53.0); Hemoglobin 13.5 g/dL (13.5-17.5); IMMATURE GRAN ABSOLUTE AUTO 0.02 K/mm3 (0.00-0.10); IMMATURE GRAN PERCENT AUTO 0 % (0-1); LYMPHOCYTES ABSOLUTE AUTO 2.25 K/mm3 (0.84-5.20); LYMPHOCYTES PERCENT AUTO 30 % (21-46); MONOCYTES ABSOLUTE AUTO 0.72 K/mm3 (0.16-1.47); MONOCYTES PERCENT AUTO 10 % (4-13); Mean Corpuscular HGB Conc 34.5 g/dL (31.5-36.5); Mean Corpuscular Volume 90 fL (80-100); NEUTROPHILS ABSOLUTE AUTO 4.29 K/mm3 (1.96-9.15); NEUTROPHILS PERCENT AUTO 57 % (41-73); NRBC ABSOLUTE 0.00 K/mm3 (0.00-0.02); NRBC Auto 0.0 /100 WBC (0.0-0.2); Platelet Count 219 K/mm3 (150-400); RDW Coefficient Variation 12.8 % (11.7-14.2); RDW Standard Deviation 42.0 fL (35.1-46.3)
[2024-12-27 16:30] LABS: Alanine Aminotransfer (ALT/SGP 30.0 U/L (12-78); Albumin, Blood 3.8 g/dL (3.4-5.0); Albumin/Globulin Ratio 1.0 (0.8-1.8); Anion Gap 13.0 mmol/L (3-11); Aspartate Aminotrans (AST/SGOT 23.0 U/L (12-37); Bilirubin, Total 0.4 mg/dL (0.1-1.0); Blood Urea Nitrogen 17.0 mg/dL (8-24); CO2, Blood 23.0 mmol/L (21-32); Calcium, Blood 8.2 mg/dL (8.5-10.1); Chloride, Blood 105.0 mmol/L (98-108); Creatinine, Blood 0.99 mg/dL (0.60-1.20); Globulin, Blood 3.7 g/dL (2.2-4.0); Glucose, Blood 103.0 mg/dL (70-99); Potassium, Blood 4.0 mmol/L (3.5-5.5); Sodium, Blood 137.0 mmol/L (136-145); Total Protein, Blood 7.5 g/dL (6.4-8.2)
[2024-12-27 16:48] LABS: Influenza A, PCR NEGATIVE (NEGATIVE); Influenza B, PCR NEGATIVE (NEGATIVE); Resp Syncytial Virus, PCR NEGATIVE (NEGATIVE); SARS-Cov-2 (COVID-19) PCR, MMC NEGATIVE (NEGATIVE)
[2024-12-27 16:52] VITALS: BP 166/74
== END 2024-12-27 17:07 | disposition home or self-care (01) ==
LOC: ER 15:45
PROVIDERS: Emergency Medicine; Physician Assistant
DX: J02.9 Acute pharyngitis, unspecified (principal); J44.9 Chronic obstructive pulmonary disease, unspecified; I11.0 Hypertensive heart disease with heart failure; K21.9 Gastro-esophageal reflux disease without esophagitis; I50.32 Chronic diastolic (congestive) heart failure; G47.33 Obstructive sleep apnea (adult) (pediatric); Z88.8 Allergy status to other drugs, medicaments and biological substances; Z91.041 Radiographic dye allergy status; Z79.899 Other long term (current) drug therapy; Z79.2 Long term (current) use of antibiotics
CPT/HCPCS: 71046; 80053; 84484; 85025; 87081; 87430; 87637; 93005; 93010; 99285-25

== ENCOUNTER 2025-01-19 07:12 | Day surgery (SDC) | payer OTHER ==
[~2025-01-19] VITALS: Ht 177.8 cm; Wt 93.0 kg
[~2025-01-19 07:12] MED LIST changes: +Lidocaine 1%-Epineph 1:100000 20 ML MDV ONE; +NS 500 ML IV ONE
[2025-01-19] MEDS ORDERED: CeFAZolin Sodium 2,000 MG VIAL ONE (07:58)
[2025-01-19] MEDS ORDERED: NS 500 ML IV ONE (07:59)
[2025-01-19] MEDS ORDERED: STIOLTO RESPIMAT4 G1 IH (08:04)
[2025-01-19] MEDS ORDERED: ATOR20 PO (08:08)
--- NOTE | 2025-01-19 08:29 | NUR ---
01/19/25 0829 DINORAH NOE 0817 8CC USED FOR NUMBING INJECTION BY DR. COLVIN. T.O. 0883
[2025-01-19] MEDS ORDERED: Midazolam HCl 1MG / ML 2ML Vial ONE (08:45)
[2025-01-19 09:04] VITALS: BP 120/77
== END 2025-01-19 09:23 | disposition home or self-care (01) ==
LOC: ORSCSDS 07:12
PROVIDERS: Orthopaedic Surgery
PROC: 01N54ZZ Release Median Nerve, Percutaneous Endoscopic Approach (ICD-10-PCS; 2025-01-19)
PROC: 0JBH0ZX Excision of Left Lower Arm Subcutaneous Tissue and Fascia, Open Approach, Diagnostic (ICD-10-PCS; principal; 2025-01-19 09:00)
DX: G56.03 Carpal tunnel syndrome, bilateral upper limbs (principal); J44.89 Other specified chronic obstructive pulmonary disease; I10 Essential (primary) hypertension; Z86.718 Personal history of other venous thrombosis and embolism; I25.10 Atherosclerotic heart disease of native coronary artery without angina pectoris; R06.02 Shortness of breath; E03.9 Hypothyroidism, unspecified; Z87.891 Personal history of nicotine dependence; Z79.82 Long term (current) use of aspirin; Z79.899 Other long term (current) drug therapy
CPT/HCPCS: 88304; 88313; J0690; J2250; J7040

== ENCOUNTER 2025-01-31 04:29 | Emergency (ER) | payer OTHER ==
[~2025-01-31] VITALS: Ht 177.8 cm; Wt 90.7 kg
[~2025-01-31 04:29] MED LIST changes: +ATOR20 PO; -Lidocaine 1%-Epineph 1:100000 20 ML MDV ONE; -NS 500 ML IV ONE; +STIOLTO RESPIMAT4 G1 IH
[2025-01-31 05:01] LABS: BASOPHILS ABSOLUTE AUTO 0.02 K/mm3 (0.00-0.23); BASOPHILS PERCENT AUTO 0 % (0-2); EOSINOPHILS ABSOLUTE AUTO 0.00 K/mm3 (0.00-0.68); EOSINOPHILS PERCENT AUTO 0 % (0-6); Hematocrit 39.6 % (37.0-53.0); Hemoglobin 13.6 g/dL (13.5-17.5); IMMATURE GRAN ABSOLUTE AUTO 0.10 K/mm3 (0.00-0.10); IMMATURE GRAN PERCENT AUTO 1 % (0-1); LYMPHOCYTES ABSOLUTE AUTO 1.73 K/mm3 (0.84-5.20); LYMPHOCYTES PERCENT AUTO 14 % (21-46); MONOCYTES ABSOLUTE AUTO 0.79 K/mm3 (0.16-1.47); MONOCYTES PERCENT AUTO 6 % (4-13); Mean Corpuscular HGB Conc 34.3 g/dL (31.5-36.5); Mean Corpuscular Volume 89 fL (80-100); NEUTROPHILS ABSOLUTE AUTO 9.98 K/mm3 (1.96-9.15); NEUTROPHILS PERCENT AUTO 79 % (41-73); NRBC ABSOLUTE 0.00 K/mm3 (0.00-0.02); NRBC Auto 0.0 /100 WBC (0.0-0.2); Platelet Count 217 K/mm3 (150-400); RDW Coefficient Variation 13.1 % (11.7-14.2); RDW Standard Deviation 42.9 fL (35.1-46.3)
[2025-01-31 05:23] LABS: Alanine Aminotransfer (ALT/SGP 38.0 U/L (12-78); Albumin, Blood 3.9 g/dL (3.4-5.0); Albumin/Globulin Ratio 1.3 (0.8-1.8); Anion Gap 7.0 mmol/L (3-11); Aspartate Aminotrans (AST/SGOT 23.0 U/L (12-37); Bilirubin, Total 0.3 mg/dL (0.1-1.0); Blood Urea Nitrogen 31.0 mg/dL (8-24); CO2, Blood 29.0 mmol/L (21-32); Calcium, Blood 8.4 mg/dL (8.5-10.1); Chloride, Blood 106.0 mmol/L (98-108); Creatinine, Blood 1.12 mg/dL (0.60-1.20); Globulin, Blood 3.1 g/dL (2.2-4.0); Glucose, Blood 140.0 mg/dL (70-99); Potassium, Blood 4.0 mmol/L (3.5-5.5); Sodium, Blood 138.0 mmol/L (136-145); Total Protein, Blood 7.0 g/dL (6.4-8.2)
[2025-01-31] MEDS ORDERED: CALCIUM GLUC IN NACL, ISO-OSM 50 ML IV ONE (06:40)
[2025-01-31] MEDS ORDERED: Magnesium Sulf 2 GM/Water 50ML 50 ML IV ONE (06:40)
[2025-01-31] MEDS ORDERED: Lidocaine 2% Viscous Soln 15 ML UDC SS ONE (07:05)
[2025-01-31] MEDS ORDERED: Ipratropium/Albuterol SulF 2.5-0.5MG/3 ML Amp INH ONE (07:10)
[2025-01-31 09:03] VITALS: BP 165/69
== END 2025-01-31 09:39 | disposition home or self-care (01) ==
LOC: ER 04:29
PROVIDERS: Emergency Medicine
DX: R00.1 Bradycardia, unspecified (principal); R55 Syncope and collapse; J31.2 Chronic pharyngitis; E83.51 Hypocalcemia; I11.0 Hypertensive heart disease with heart failure; I50.30 Unspecified diastolic (congestive) heart failure; J44.9 Chronic obstructive pulmonary disease, unspecified; Z79.82 Long term (current) use of aspirin; Z79.899 Other long term (current) drug therapy; Z88.8 Allergy status to other drugs, medicaments and biological substances; G47.33 Obstructive sleep apnea (adult) (pediatric); K21.9 Gastro-esophageal reflux disease without esophagitis; Z87.891 Personal history of nicotine dependence
CPT/HCPCS: 71045; 80053; 83735; 84484; 85025; 93005; 93010; 96365; 96375; 99284-25; A9270; J0612; J3475

== ENCOUNTER 2025-02-10 08:41 | Day surgery (SDC) | payer OTHER ==
[~2025-02-10] VITALS: Ht 177.8 cm; Wt 94.2 kg
[~2025-02-10 08:41] MED LIST changes: +NS 500 ML IV ONE
[2025-02-10] MEDS ORDERED: CeFAZolin Sodium 2,000 MG VIAL ONE (09:27)
[2025-02-10] MEDS ORDERED: NS 500 ML IV ONE (09:35)
[2025-02-10] MEDS ORDERED: OMEPRAZOLE MAGN20 M1 PO (09:38)
--- NOTE | 2025-02-10 09:45 | NUR ---
02/10/25 0945 Gifty uA TIME OUT PERFORMED AT BEDSIDE WITH DR BAXTER AT 0942 IMMEDIATELY PRIOR TO INJECTION OF 7ML OF SOLUTION CONSISTING OF 9ML 1% LIDOCAINE W/EPI [id number] AND 1ML 8.4% SODIUM BICARBONATE INTO R HAND. PT TOLERATED PROCEDURE WELL.
--- NOTE | 2025-02-10 11:15 | NUR ---
02/10/25 1115 Amor Stewart PT'S HR DROPPED TO 30'S FOR APPROXAMATELY 3-4 VERY BREIF PERIODS DURING INITIAL ARRIVAL IN SDU. HR DID NOT DROP BELOW 50 [facility]23. DR. PHILLIP WAS CONSULTED AND APPROVED D/C. PT STATED HE IS BEING TREATED BY VOLUNTEER ASSISTANT FOR BRADYCARDIA. HE WAS INSTRUCTED TO FOLLOW UP WITH VOLUNTEER ASSISTANT. PT DENIED CP, NAUSEA, WEAKNESS, SOB, AND DIZZINESS UPON D/C. HE SAID, "I FEEL FINE," AND EXPRESSED READINESS TO RETURN HOME.
[2025-02-10 11:21] VITALS: BP 136/68
== END 2025-02-10 10:56 | disposition home or self-care (01) ==
LOC: ORSCSDS 08:41
PROVIDERS: Orthopaedic Surgery
PROC: 01N54ZZ Release Median Nerve, Percutaneous Endoscopic Approach (ICD-10-PCS; principal; 2025-02-10 10:15)
DX: G56.01 Carpal tunnel syndrome, right upper limb (principal); J44.9 Chronic obstructive pulmonary disease, unspecified; I10 Essential (primary) hypertension; Z79.82 Long term (current) use of aspirin; I25.10 Atherosclerotic heart disease of native coronary artery without angina pectoris; I25.2 Old myocardial infarction; Z87.891 Personal history of nicotine dependence; Z79.899 Other long term (current) drug therapy
CPT/HCPCS: J0690; J7040

== ENCOUNTER 2025-02-26 14:29 | Observation (INO) | payer OTHER ==
[~2025-02-26] VITALS: Ht 177.8 cm; Wt 91.0 kg
[~2025-02-26 14:29] MED LIST changes: -NS 500 ML IV ONE; +OMEPRAZOLE MAGN20 M1 PO
[2025-02-26 15:15] LABS: BASOPHILS ABSOLUTE AUTO 0.03 K/mm3 (0.00-0.23); BASOPHILS PERCENT AUTO 1 % (0-2); EOSINOPHILS ABSOLUTE AUTO 0.25 K/mm3 (0.00-0.68); EOSINOPHILS PERCENT AUTO 4 % (0-6); Hematocrit 39.7 % (37.0-53.0); Hemoglobin 13.7 g/dL (13.5-17.5); IMMATURE GRAN ABSOLUTE AUTO 0.02 K/mm3 (0.00-0.10); IMMATURE GRAN PERCENT AUTO 0 % (0-1); LYMPHOCYTES ABSOLUTE AUTO 1.65 K/mm3 (0.84-5.20); LYMPHOCYTES PERCENT AUTO 28 % (21-46); MONOCYTES ABSOLUTE AUTO 0.66 K/mm3 (0.16-1.47); MONOCYTES PERCENT AUTO 11 % (4-13); Mean Corpuscular HGB Conc 34.5 g/dL (31.5-36.5); Mean Corpuscular Volume 89 fL (80-100); NEUTROPHILS ABSOLUTE AUTO 3.37 K/mm3 (1.96-9.15); NEUTROPHILS PERCENT AUTO 56 % (41-73); NRBC ABSOLUTE 0.00 K/mm3 (0.00-0.02); NRBC Auto 0.0 /100 WBC (0.0-0.2); Platelet Count 207 K/mm3 (150-400); RDW Coefficient Variation 12.8 % (11.7-14.2); RDW Standard Deviation 41.7 fL (35.1-46.3)
[2025-02-26 15:30] LABS: Alanine Aminotransfer (ALT/SGP 33.0 U/L (12-78); Albumin, Blood 3.9 g/dL (3.4-5.0); Albumin/Globulin Ratio 1.2 (0.8-1.8); Anion Gap 9.0 mmol/L (3-11); Aspartate Aminotrans (AST/SGOT 28.0 U/L (12-37); Bilirubin, Total 0.7 mg/dL (0.1-1.0); Blood Urea Nitrogen 18.0 mg/dL (8-24); CO2, Blood 24.0 mmol/L (21-32); Calcium, Blood 8.4 mg/dL (8.5-10.1); Chloride, Blood 107.0 mmol/L (98-108); Creatinine, Blood 1.05 mg/dL (0.60-1.20); Globulin, Blood 3.3 g/dL (2.2-4.0); Glucose, Blood 99.0 mg/dL (70-99); Potassium, Blood 4.3 mmol/L (3.5-5.5); Sodium, Blood 136.0 mmol/L (136-145); Total Protein, Blood 7.2 g/dL (6.4-8.2)
[2025-02-26] MEDS ORDERED: Ipratropium/Albuterol SulF 2.5-0.5MG/3 ML Amp INH SCH ×2 (18:00→20:00)
[2025-02-26] MEDS ORDERED: Albuterol 2.5 MG/3 ML VIAL INH PRN (18:05)
[2025-02-26 19:04] LABS: Influenza A/2009-H1 Not Detected (NOT DETECT); SARS-Cov-2 (COVID-19), BioFire Not Detected (NOT DETECT)
[2025-02-26 21:22] VITALS: BP 143/119
[2025-02-26 21:47] VITALS: BP 132/69
[2025-02-26 23:48] VITALS: BP 106/83
[2025-02-27 03:17] LABS: BASOPHILS ABSOLUTE AUTO 0.04 K/mm3 (0.00-0.23); BASOPHILS PERCENT AUTO 1 % (0-2); EOSINOPHILS ABSOLUTE AUTO 0.29 K/mm3 (0.00-0.68); EOSINOPHILS PERCENT AUTO 5 % (0-6); Hematocrit 36.2 % (37.0-53.0); Hemoglobin 12.6 g/dL (13.5-17.5); IMMATURE GRAN ABSOLUTE AUTO 0.01 K/mm3 (0.00-0.10); IMMATURE GRAN PERCENT AUTO 0 % (0-1); LYMPHOCYTES ABSOLUTE AUTO 1.47 K/mm3 (0.84-5.20); LYMPHOCYTES PERCENT AUTO 27 % (21-46); MONOCYTES ABSOLUTE AUTO 0.68 K/mm3 (0.16-1.47); MONOCYTES PERCENT AUTO 12 % (4-13); Mean Corpuscular HGB Conc 34.8 g/dL (31.5-36.5); Mean Corpuscular Volume 90 fL (80-100); NEUTROPHILS ABSOLUTE AUTO 3.06 K/mm3 (1.96-9.15); NEUTROPHILS PERCENT AUTO 55 % (41-73); NRBC ABSOLUTE 0.00 K/mm3 (0.00-0.02); NRBC Auto 0.0 /100 WBC (0.0-0.2); Platelet Count 189 K/mm3 (150-400); RDW Coefficient Variation 12.8 % (11.7-14.2); RDW Standard Deviation 42.2 fL (35.1-46.3)
[2025-02-27 03:57] LABS: Alanine Aminotransfer (ALT/SGP 29.0 U/L (12-78); Albumin, Blood 3.4 g/dL (3.4-5.0); Albumin/Globulin Ratio 1.2 (0.8-1.8); Anion Gap 6.0 mmol/L (3-11); Aspartate Aminotrans (AST/SGOT 19.0 U/L (12-37); Bilirubin, Total 0.4 mg/dL (0.1-1.0); Blood Urea Nitrogen 19.0 mg/dL (8-24); CO2, Blood 29.0 mmol/L (21-32); Calcium, Blood 8.3 mg/dL (8.5-10.1); Chloride, Blood 110.0 mmol/L (98-108); Creatinine, Blood 1.13 mg/dL (0.60-1.20); Globulin, Blood 2.9 g/dL (2.2-4.0); Glucose, Blood 99.0 mg/dL (70-99); Potassium, Blood 4.1 mmol/L (3.5-5.5); Sodium, Blood 141.0 mmol/L (136-145); Thyroid Stimulating Hormone 1.14 uIU/mL (0.360-4.800); Total Protein, Blood 6.3 g/dL (6.4-8.2)
[2025-02-27 05:18] VITALS: BP 117/67
--- NOTE | 2025-02-27 05:36 | NUR ---
SHIFT SUMMARY PT ARRIVED FROM ER AROUND 2100. ORIENTED TO ROOM. A&Ox4 AND PLEASANT. SON AT BEDSIDE FOR A COUPLE HOURS. DENIED CP/PRESSURE T/O SHIFT. PT DOES REPORT FEELING SOB WITH ACTIVITY SO 1L OF OXYGEN PLACED FOR COMFORT DURING THE NIGHT. VSS. BED IN LOWEST POSITION AND CALL LIGHT IN REACH.
[2025-02-27 07:23] VITALS: BP 133/71
[2025-02-27] MEDS ORDERED: Enoxaparin 40 MG/0.4 ML SYR SC SCH (09:00)
[2025-02-27] MEDS ORDERED: Cholecalciferol 1000 Unit Tablet (=25MCG) PO SCH (09:00)
[2025-02-27] MEDS ORDERED: FLU VACC TS2025-26(6MOS UP)/PF 45 MCG/0.5 ML SYRINGE IM SCH (09:00)
[2025-02-27 11:16] VITALS: BP 128/71
[2025-02-27] MEDS ORDERED: ZOCOR20 MG PO (14:26)
[2025-02-27 15:29] VITALS: BP 143/52
--- NOTE | 2025-02-27 16:37 | NUR ---
PT IS A/Ox4. PLEASANT AND COOPERATIVE WITH CARE. INDEPENDENT IN ROOM. USES CALL LIGHT APPROPRIATELY. STRESS TEST COMPLETED TODAY, RESULTS STILL PENDING. NO C/O CP THIS SHIFT.
[2025-02-27 20:18] VITALS: BP 105/59
[2025-02-28 00:21] VITALS: BP 108/64
[2025-02-28 05:29] VITALS: BP 105/50
--- NOTE | 2025-02-28 05:31 | NUR ---
SHIFT SUMMARY A&OX4. ABLE TO MAKE NEEDS KNOWN. COULD NOT TOLERATE CPAP DUE TO IT PUTTING PRESSURE ON HIS RIGHT EYE WHICH HE HAS HAD WORK DONE TO IN THE PAST. RT INFORMED. PT PLEASANT WITH CARE. PT IS CURRENTLY RESTING IN BED AT LOWEST POSITION WITH CALL LIGHT WITHIN REACH.
[2025-02-28 06:06] LABS: BASOPHILS ABSOLUTE AUTO 0.03 K/mm3 (0.00-0.23); BASOPHILS PERCENT AUTO 1 % (0-2); EOSINOPHILS ABSOLUTE AUTO 0.33 K/mm3 (0.00-0.68); EOSINOPHILS PERCENT AUTO 6 % (0-6); Hematocrit 35.7 % (37.0-53.0); Hemoglobin 12.3 g/dL (13.5-17.5); IMMATURE GRAN ABSOLUTE AUTO 0.03 K/mm3 (0.00-0.10); IMMATURE GRAN PERCENT AUTO 1 % (0-1); LYMPHOCYTES ABSOLUTE AUTO 1.54 K/mm3 (0.84-5.20); LYMPHOCYTES PERCENT AUTO 28 % (21-46); MONOCYTES ABSOLUTE AUTO 0.64 K/mm3 (0.16-1.47); MONOCYTES PERCENT AUTO 12 % (4-13); Mean Corpuscular HGB Conc 34.5 g/dL (31.5-36.5); Mean Corpuscular Volume 91 fL (80-100); NEUTROPHILS ABSOLUTE AUTO 2.97 K/mm3 (1.96-9.15); NEUTROPHILS PERCENT AUTO 54 % (41-73); NRBC ABSOLUTE 0.00 K/mm3 (0.00-0.02); NRBC Auto 0.0 /100 WBC (0.0-0.2); Platelet Count 193 K/mm3 (150-400); RDW Coefficient Variation 12.9 % (11.7-14.2); RDW Standard Deviation 42.6 fL (35.1-46.3)
[2025-02-28 06:49] LABS: Alanine Aminotransfer (ALT/SGP 27.0 U/L (12-78); Albumin, Blood 3.4 g/dL (3.4-5.0); Albumin/Globulin Ratio 1.2 (0.8-1.8); Anion Gap 8.0 mmol/L (3-11); Aspartate Aminotrans (AST/SGOT 15.0 U/L (12-37); Bilirubin, Total 0.4 mg/dL (0.1-1.0); Blood Urea Nitrogen 16.0 mg/dL (8-24); CO2, Blood 26.0 mmol/L (21-32); Calcium, Blood 8.7 mg/dL (8.5-10.1); Chloride, Blood 111.0 mmol/L (98-108); Creatinine, Blood 1.1 mg/dL (0.60-1.20); Globulin, Blood 2.9 g/dL (2.2-4.0); Glucose, Blood 97.0 mg/dL (70-99); Potassium, Blood 3.9 mmol/L (3.5-5.5); Sodium, Blood 141.0 mmol/L (136-145); Total Protein, Blood 6.3 g/dL (6.4-8.2)
[2025-02-28 07:53] VITALS: BP 138/82
[2025-02-28 11:17] VITALS: BP 116/97
[2025-02-28] MEDS ORDERED: AMLO5 PO (14:18)
[2025-02-28] MEDS ORDERED: PRAV20 PO (14:18)
--- NOTE | 2025-02-28 15:51 | NUR ---
DISCHARGE / SHIFT SUMMARY: PATIENT A+O X4 AND ABLE TO MAKE NEEDS KNOWN THROUGHOUT THIS SHIFT. PATIENT HAD NO RECORDABLE EPISODES OF CHEST DISCOMFORT DURING THIS DAY. REVIEWING TELE PATIENT IS RUNNING SINUS 67. LUNGS CLEAR THROUGHOUT BUT DIMINISHED IN THE BASES. SKIN INTACT WITH NO RECORDABLE CHANGES. PATIENT HAD LAST BM 02/27/25 AND LAST URINATED THIS AM. PATIENT REMAINS IND IN ROOM AND CALLS WHEN NEEDED. PATIENT DISCHARGED THIS DAY BACK HOME. PATIENT EDUCATED ON IMPORTANCE OF KEEPING FOLLOW-UP APPOINTMENTS WITH CARDIOLOGY AND TO FOLLOW-UP WITH PCP AT [facility]. PATIENT EDUCATED ON MEDICATIONS AND WHEN TO TAKE THEM. THIS NURSE EMPHASIZED THE IMPORTANCE OF TAKING BLOOD PRESSURE PRIOR TO TAKING ANY BLOOD PRESSURE MEDICATIONS AND RECORDING THEM IN A NOTEBOOK. PATIENT VARBALIZED UNDERSTANDING. BELONGINGS PROVIDED BACK TO PATIENT AND MEDICATIONS FAXED TO [facility]. PATIENT WHEELED OUT ON WHEELCHAIR.
== END 2025-02-28 14:51 | disposition home or self-care (01) ==
LOC: ER 14:29 → ERHOLD 14:30 → MEDS 14:30
PROVIDERS: Emergency Medicine; ADMIT Internal Medicine
DX: R07.89 Other chest pain (principal); I25.119 Atherosclerotic heart disease of native coronary artery with unspecified angina pectoris; R00.1 Bradycardia, unspecified; J44.9 Chronic obstructive pulmonary disease, unspecified; E03.9 Hypothyroidism, unspecified; R05.3 Chronic cough; N40.0 Benign prostatic hyperplasia without lower urinary tract symptoms; I11.0 Hypertensive heart disease with heart failure; I50.32 Chronic diastolic (congestive) heart failure; G47.33 Obstructive sleep apnea (adult) (pediatric); Z87.891 Personal history of nicotine dependence; Z91.041 Radiographic dye allergy status; Z88.8 Allergy status to other drugs, medicaments and biological substances; Z79.82 Long term (current) use of aspirin; Z79.899 Other long term (current) drug therapy
CPT/HCPCS: 0202U; 36415; 71045; 78452; 80053; 84439; 84443; 84484; 85025; 93005; 93010; 93017; 94640; 94660; 94762; 96372; 99285-25; A9270; A9500; G0378; J0706; J1650; J2785